=== PATIENT | female | born 1960 | race Caucasian/White ===

== ENCOUNTER → 2017-04-10 | Outpatient (CLI) | payer OTHER | LOC: FIMAGING 15:02 | PROVIDERS: ATTEND Family Medicine | DX: Z12.31 Encounter for screening mammogram for malignant neoplasm of breast (principal); Z80.3 Family history of malignant neoplasm of breast | CPT/HCPCS: G0202 ==

== ENCOUNTER → 2017-04-25 | Outpatient (CLI) | payer OTHER | LOC: FIMAGING 09:04 | PROVIDERS: ATTEND Family Medicine | CPT/HCPCS: G0206 ==

== ENCOUNTER → 2017-07-09 | Outpatient (CLI) | payer OTHER ==
[~2017-07-09] MED LIST: IOPAMIDOL (ISOVUE-300) 100 ML BTL ONE
== END ==
LOC: CIMAGING 08:15
PROVIDERS: ATTEND Family Medicine
DX: J98.4 Other disorders of lung (principal); K76.0 Fatty (change of) liver, not elsewhere classified; Z98.84 Bariatric surgery status; Z90.49 Acquired absence of other specified parts of digestive tract
CPT/HCPCS: 71260-PO; Q9967

== ENCOUNTER 2017-07-24 13:51 | Inpatient (IN) | payer OTHER ==
[2017-07-24] MEDS ORDERED: PROMETHAZINE HCL 25 MG/ML INJ IVP ONE (14:11)
[2017-07-24] MEDS ORDERED: HYDROmorphONE/DILAUDID 1 MG/ML INJ IVP ONE (14:11)
[2017-07-24] MEDS ORDERED: NS 1,000 ML IV ONE (14:11)
--- NOTE | 2017-07-24 14:16 | EDPHY ---
H & P Stated Complaint: R FLANK PAIN Time Seen by Provider: 07/24/17 14:05 HPI/ROS: CHIEF COMPLAINT: Right flank pain radiating to her right HISTORY OF PRESENT ILLNESS: The patient is a 56-year-old female who comes to the emergency department complaining of right flank pain that is radiating to her groin it has been present for 3 days. She has also developed a low-grade fever of 100 degrees in the last 24 hours. Mild dysuria. Vomiting. She denies any chest pain or shortness of breath. She denies risk of . No vaginal bleeding or discharge. No diarrhea. REVIEW OF SYSTEMS: Constitutional: See HPI EENTM: denies: blurred vision, double vision, nose congestion Respiratory: denies: cough, shortness of breath Cardiac: denies: chest pain, irregular heart rate, lightheadedness, palpitations Gastrointestinal/Abdominal: See HPI Genitourinary: denies: dysuria, frequency, hematuria, pain Musculoskeletal: denies: joint pain, muscle pain Skin: denies: lesions, rash, jaundice, bruising Neurological: denies: headache, numbness, paresthesia, tingling, dizziness, weakness Hematologic/Lymphatic: denies: blood clots, easy bleeding, easy bruising Immunologic/allergic: denies: HIV/AIDS, transplant EXAM: GENERAL: Well-appearing, well-nourished and in no acute distress. HEAD: Atraumatic, normocephalic. EYES: Pupils equal round and reactive to light, extraocular movements intact, sclera anicteric, conjunctiva are normal. ENT: TMs normal, nares patent, oropharynx clear without exudates. Moist mucous membranes. NECK: Normal range of motion, supple without lymphadenopathy or JVD. LUNGS: Breath sounds clear to auscultation bilaterally and equal. No wheezes rales or rhonchi. HEART: Regular rate and rhythm without murmurs, rubs or gallops. ABDOMEN: Soft, nontender, normoactive bowel sounds. No guarding, no rebound. No masses appreciated. BACK: Positive CVA tenderness, no spinal tenderness, step-offs or deformities EXTREMITIES: Normal range of motion, no pitting or edema. No clubbing or cyanosis. NEUROLOGICAL: Cranial nerves II through XII grossly intact. Normal speech, normal gait. 5/5 strength, normal movement in all extremities, normal sensation PSYCH: Normal mood, normal affect. SKIN: Warm, dry, normal turgor, no visible rashes or lesions. Source: Patient Exam Limitations: No limitations - Personal History Current Tetanus Diphtheria and Acellular Pertussis (TDAP): Yes Tetanus Vaccine Date: within last 10 years. 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.RA, kidney stones,reflux, neck surgery, vocal cord surgery - Family History Significant Family History: No pertinent family hx - Social History Smoking Status: Current every day smoker Alcohol Use: Sober Drug Use: None Constitutional: Initial Vital Signs Temperature (C) 36.9 C 07/24/17 14:02 Heart Rate 83 07/24/17 14:02 Respiratory Rate 16 07/24/17 14:02 Blood Pressure 151/76 H 07/24/17 14:02 O2 Sat (%) 92 07/24/17 14:02 O2 Delivery Mode Room Air O2 (L/minute) 2 Allergies/Adverse Reactions: Penicillins Allergy (Severe, Verified 10/25/14 16:56) Swelling/neck,face,throat Home Medications: Medication Instructions Recorded Gabapentin [Neurontin 300 MG (*)] 300 mg PO HS 10/25/14 Pravastatin Sodium [Pravachol] 40 mg PO HS 10/25/14 Alendronate Sodium [Fosamax 70 MG 70 mg PO DONOVAN@0700 07/24/17 (*)] Fluocinonide 0.05% [Lidex 0.05% 1 ian TP DAILY 07/24/17 Cream] Humira 40 mg INJ Q14D 07/24/17 Omeprazole 40 mg PO DAILY06 07/24/17 Pramipexole Di-HCl [Pramipexole 0.75 mg PO HS 07/24/17 Dihydrochloride] Pravastatin Sodium [Pravachol] 40 mg PO HS 07/24/17 Propranolol HCl [Inderal Xl] 80 mg PO DAILY 07/24/17 Sulfamethox/Tmp 800/160 mg 1 tab PO BID 07/24/17 [Bactrim Ds] Medical Decision Making - Diagnostics Imaging Results: Imaging Impressions Abdomen/Pelvis CT 07/24/17 14:42 Impression: Obstructing right ureteral pelvic stone still several centimeters from the bladder. Results called and discussed with JENIFFER SANCHEZ, at 07/24/2017 15:17. General information for patients regarding this examination can be found at [email or web address]. If you have questions or comments about this report, please contact me at (hospital) or [phone] (cell). Imaging: Discussed imaging studies w/ instrument setter Radiologist ED Course/Re-evaluation: Patient's LFTs are elevated. They were as well in 2014. At that time she was admitted with sepsis. It was thought to be possibly due to her statins which were held. According to the medical record she also has a history of lupus and Sjogren syndrome as well as SVT status post ablation, hysterectomy and C- section as well as cervical spine surgery and frequent UTIs. 3:20 p.m. we discussed the CT and lab results. The patient has a kidney stone complicated by likely pyelonephritis. We have initiated lab work for sepsis protocol. I have ordered Rocephin. Have paged the hospitalist service and the urologist. Her vital signs remained stable. 3:40 p.m. I discussed the case with Dr. Segura who will admit to medical service. 4:30 p.m. discussed the case with Dr. Krystian Carlton who requested the patient be made NPO. Differential Diagnosis: Partial list of the Differential diagnosis considered include but were not limited to; kidney stone, urinary tract infection, and although unlikely based on the history and physical exam, I also considered radiculopathy, pneumonia. Critical Care Time: Critical care time spent by , Dr. Sanchez exclusive with this patient was 35 minutes, exclusive of the PA time exclusive of procedures. The organ system that was at risk was genitourinary and I gave IV fluids, antibiotics, consultation and admission to prevent worsening of the patient's condition - Data Points Laboratory Results: Laboratory Results 07/24/17 13:55 07/24/17 13:55 07/24/17 07/24/17 07/24/17 15:33 13:55 13:55 WBC RBC Hgb Hct MCV MCH MCHC RDW Plt Count MPV Neut % (Auto) Lymph % (Auto) [place] % (Auto) Eos % (Auto) Baso % (Auto) Nucleat RBC Rel Count Absolute Neuts (auto) Absolute Lymphs (auto) Absolute Monos (auto) Absolute Eos (auto) Absolute Basos (auto) Absolute Nucleated RBC Immature Gran % Immature Gran # VBG Lactic Acid 0.7 mmol/L mmol/L (0.7-2.1) Sodium 141 mEq/L mEq/L (134-144) Potassium 3.1 mEq/L L mEq/L (3.5-5.2) Chloride 99 mEq/L mEq/L (97-110) Carbon Dioxide 23 mEq/l mEq/l (22-31) Anion Gap 19 mEq/L H mEq/L (8-16) BUN 17 mg/dL mg/dL (7-23) Creatinine 1.0 mg/dL mg/dL (0.6-1.0) Estimated GFR 58 Glucose 117 mg/dL H mg/dL (70-100) Calcium 10.2 mg/dL mg/dL (8.5-10.4) Total Bilirubin 1.4 mg/dL mg/dL (0.1-1.4) Conjugated Bilirubin 0.3 mg/dL mg/dL (0.0-0.5) Unconjugated Bilirubin 1.1 mg/dL mg/dL (0.0-1.1) AST 218 IU/L H IU/L (14-46) ALT 226 IU/L H IU/L (9-52) Alkaline Phosphatase 178 IU/L H IU/L (38-126) Total Protein 8.1 g/dL g/dL (6.3-8.2) Albumin 4.9 g/dL g/dL (3.5-5.0) Lipase 93 IU/L IU/L (23-300) Beta HCG, Qual NEGATIVE Urine Color Urine Appearance Urine pH Ur Specific [place] Urine Protein Urine Ketones Urine Blood Urine Nitrate Urine Bilirubin Urine Urobilinogen Ur Leukocyte Esterase Urine RBC Urine WBC Ur Epithelial Cells Urine Bacteria Urine Mucus Urine Glucose 07/24/17 07/24/17 13:55 13:52 WBC 17.04 10^3/uL H 10^3/uL (3.80-9.50) RBC 5.17 10^6/uL 10^6/uL (4.18-5.33) Hgb 16.2 g/dL g/dL (12.6-16.3) Hct 45.2 % % (38.0-47.0) MCV 87.4 fL fL (81.5-99.8) MCH 31.3 pg pg (27.9-34.1) MCHC 35.8 g/dL g/dL (32.4-36.7) RDW 13.0 % % (11.5-15.2) Plt Count 369 10^3/uL 10^3/uL (150-400) MPV 9.3 fL fL (8.7-11.7) Neut % (Auto) 75.5 % H % (39.3-74.2) Lymph % (Auto) 15.2 % % (15.0-45.0) [place] % (Auto) 8.3 % % (4.5-13.0) Eos % (Auto) 0.1 % L % (0.6-7.6) Baso % (Auto) 0.4 % % (0.3-1.7) Nucleat RBC Rel Count 0.0 % % (0.0-0.2) Absolute Neuts (auto) 12.87 10^3/uL H 10^3/uL (1.70-6.50) Absolute Lymphs (auto) 2.59 10^3/uL 10^3/uL (1.00-3.00) Absolute Monos (auto) 1.42 10^3/uL H 10^3/uL (0.30-0.80) Absolute Eos (auto) 0.02 10^3/uL L 10^3/uL (0.03-0.40) Absolute Basos (auto) 0.06 10^3/uL 10^3/uL (0.02-0.10) Absolute Nucleated RBC 0.00 10^3/uL 10^3/uL (0-0.01) Immature Gran % 0.5 % % (0.0-1.1) Immature Gran # 0.08 10^3/uL 10^3/uL (0.00-0.10) VBG Lactic Acid Sodium Potassium Chloride Carbon Dioxide Anion Gap BUN Creatinine Estimated GFR Glucose Calcium Total Bilirubin Conjugated Bilirubin Unconjugated Bilirubin AST ALT Alkaline Phosphatase Total Protein Albumin Lipase Beta HCG, Qual Urine Color ANKIT Urine Appearance HAZY Urine pH 5.0 (5.0-7.5) Ur Specific [place] 1.027 (1.002-1.030) Urine Protein 2+ H (NEGATIVE) Urine Ketones 1+ H (NEGATIVE) Urine Blood 2+ H (NEGATIVE) Urine Nitrate POSITIVE H (NEGATIVE) Urine Bilirubin NEGATIVE (NEGATIVE) Urine Urobilinogen 2.0 EU H EU (0.2-1.0) Ur Leukocyte Esterase TRACE H (NEGATIVE) Urine RBC 50-182 /hpf H /hpf (0-3) Urine WBC 25-50 /hpf H /hpf (0-3) Ur Epithelial Cells 1+ /lpf /lpf (NONE-1+) Urine Bacteria TRACE /hpf H /hpf (NONE SEEN) Urine Mucus TRACE /lpf /lpf (NONE-1+) Urine Glucose NEGATIVE (NEGATIVE) Medications Given: Hydromorphone HCl (Dilaudid) 0.2 - 1 mg IVP Q2 PRN PRN Reason: Pain, Severe Unable to Take PO Stop: 08/03/17 15:40 Last Admin: 07/24/17 17:07 Dose: 1 mg Sodium Chloride (Ns) 1,000 mls @ 150 mls/hr IV CONT SHUBHAM Stop: 01/20/18 15:44 Last Admin: 07/24/17 17:08 Dose: 1,000 mls Ondansetron HCl (Zofran) 4 mg IVP Q4HRS PRN PRN Reason: Nausea/Vomiting, Can't Take PO Stop: 01/20/18 15:40 Last Admin: 07/24/17 17:07 Dose: 4 mg Discontinued Medications Hydromorphone HCl (Dilaudid) 1 mg IVP EDNOW ONE Stop: 07/24/17 14:12 Last Admin: 07/24/17 14:19 Dose: 1 mg Sodium Chloride (Ns) 1,000 mls @ 0 mls/hr IV EDNOW ONE; Wide Open PRN Reason: Protocol Stop: 07/24/17 14:12 Last Admin: 07/24/17 14:19 Dose: 1,000 mls Ceftriaxone Sodium/Dextrose (Rocephin 1 Gm (Premix)) 50 mls @ 100 mls/hr IV EDNOW ONE PRN Reason: Protocol Stop: 07/24/17 15:28 Last Admin: 07/24/17 15:20 Dose: 50 mls Sodium Chloride (Ns) 2,000 mls @ 4,000 mls/hr 30 ml/kg infuse over 30 min ( 2000 ml) IV EDNOW ONE PRN Reason: Protocol Stop: 07/24/17 15:50 Last Admin: 07/24/17 15:31 Dose: 2,000 mls Ketorolac Tromethamine (Toradol) 15 mg IVP EDNOW ONE Stop: 07/24/17 15:25 Last Admin: 07/24/17 15:30 Dose: 15 mg Promethazine HCl (Phenergan) 12.5 mg IVP EDNOW ONE Stop: 07/24/17 14:12 Last Admin: 07/24/17 14:18 Dose: 12.5 mg Departure - Departure Disposition: [facility] Acute Clinical Impression: Kidney stone on right side, Pyelonephritis Sepsis Qualifiers: Sepsis type: sepsis due to unspecified organism Qualified Code(s): A41.9 - Sepsis, unspecified organism Condition: Critical
[2017-07-24 14:18] LABS: COLOR AMBER; LEUKOCYTE ESTERASE,URINE TRACE (NEGATIVE); NITRITE,URINE POSITIVE (NEGATIVE)
[2017-07-24 14:18] LABS: % IMMATURE GRANULYOCYTES 0.5 % (0.0-1.1); ABSOLUTE IMMATURE GRANULOCYTES 0.08 10^3/uL (0.00-0.10); ADD DIFF? NO; ADD MORPH? NO; ADD SCAN? NO; ATYPICAL LYMPHOCYTE FLAG 0 (0-99); FRAGMENT RBC FLAG 0 (0-99); HEMATOCRIT 45.2 % (38.0-47.0); HEMOGLOBIN 16.2 g/dL (12.6-16.3); LEFT SHIFT FLG 0 (0-99); LIPEMIA HEMOLYSIS FLAG 90 (0-99); MEAN CELL HEMOGLOBIN 31.3 pg (27.9-34.1); MEAN CELL HEMOGLOBIN CONCENTR. 35.8 g/dL (32.4-36.7); MEAN CELL VOLUME 87.4 fL (81.5-99.8); MEAN PLATELET VOLUME 9.3 fL (8.7-11.7); PLATELET CLUMPS FLAG 0 (0-99); PLATELET COUNT 369 10^3/uL (150-400); RED BLOOD CELL COUNT 5.17 10^6/uL (4.18-5.33)
[2017-07-24 14:19] LABS: BACTERIA TRACE /hpf (NONE SEEN); MUCUS TRACE /lpf (NONE-1+); RBC,URINE 50-182 /hpf (0-3); WBC,URINE 25-50 /hpf (0-3)
[2017-07-24 14:24] LABS: ALANINE AMINOTRANSFERASE 226 IU/L (9-52); ALBUMIN 4.9 g/dL (3.5-5.0); ALKALINE PHOSPHATASE 178 IU/L (38-126); ANION GAP 19 mEq/L (8-16); ASPARTATE AMINOTRANSFERASE 218 IU/L (14-46); BILIRUBIN,TOTAL 1.4 mg/dL (0.1-1.4); BILIRUBIN-CONJUGATED 0.3 mg/dL (0.0-0.5); BILIRUBIN-UNCONJUGATED 1.1 mg/dL (0.0-1.1); CALCIUM 10.2 mg/dL (8.5-10.4); CARBON DIOXIDE 23 mEq/l (22-31); CHLORIDE 99 mEq/L (97-110); GLOMERULAR FILTRATION RATE 58; GLUCOSE 117 mg/dL (70-100); POTASSIUM 3.1 mEq/L (3.5-5.2); SODIUM 141 mEq/L (134-144); TOTAL PROTEIN 8.1 g/dL (6.3-8.2)
[2017-07-24] MEDS ORDERED: NS 2,000 ML IV ONE (15:21)
[2017-07-24] MEDS ORDERED: KETOROLAC 30 MG/1 ML SDV IVP ONE (15:24)
[2017-07-24] MEDS ORDERED: PROMETHAZINE HCL 25 MG TAB PO PRN (15:41)
[2017-07-24] MEDS ORDERED: ACETAMINOPHEN 325 MG TAB PO PRN (15:41)
[2017-07-24] MEDS ORDERED: ONDANSETRON DISINTEGRATING 4 MG TAB PO PRN (15:41)
[2017-07-24] MEDS ORDERED: HYDROmorphONE/DILAUDID 2 MG TAB PO PRN (15:41)
[2017-07-24] MEDS: HYDROmorphONE/DILAUDID 1 MG/ML INJ IVP PRN ×2 (17:07→20:46)
[2017-07-24] MEDS: ONDANSETRON 4 MG/2 ML VIAL IVP PRN (17:07)
[2017-07-24] MEDS: NS 1,000 ML IV SCH (17:08)
--- NOTE | 2017-07-24 17:46 | PDGENHP ---
History and Physical - Chief Complaint Acute flank pain - History of Present Illness Primary care provider: Dr. Morris Primary forensic specialist: Dr. Wilson Primary electrostatic powder coating technician: At [facility] in [place] HPI: 56-year-old female presents with acute pain characterized as sharp and severe located in her right flank, radiating into her right groin, with associated hematuria nausea and vomiting. Onset of symptoms was 3 days prior and duration has been constant thereafter. The symptoms began with visible hematuria and the pain symptoms quickly evolved. On the day of presentation, she has noted subjective fever with a temperature of 100 degrees F. she reports that her symptoms are similar in character to previous episodes of kidney stones , and she attempted to manage the symptoms with oral Polv[place]era. She reports that this medication did not alleviate the symptoms, and she may vomited up. She reports that the pain medication received in the emergency department does seem to somewhat alleviate the symptoms. She has otherwise been attempting to eat and drink regularly, but notes poor oral intake of solids over the past several days, secondary to the nausea and vomiting. History Information - Allergies/Home Medication List Allergies/Adverse Reactions: Penicillins Allergy (Severe, Verified 10/25/14 16:56) Swelling/neck,face,throat Home Medications: Gabapentin [Neurontin 300 MG (*)] 300 mg PO HS 10/25/14 [Last Taken 07/21/17] Pravastatin Sodium [Pravachol] 40 mg PO HS 10/25/14 [Last Taken 07/21/17] Alendronate Sodium [Fosamax 70 MG (*)] 70 mg PO DONOVAN@0700 07/24/17 [Last Taken ] Fluocinonide 0.05% [Lidex 0.05% Cream] 1 ian TP DAILY 07/24/17 [Last Taken 07/24] Humira 40 mg INJ Q14D 07/24/17 [Last Taken 07/12/17] Omeprazole 40 mg PO DAILY06 07/24/17 [Last Taken 07/21/17] Pramipexole Di-HCl [Pramipexole Dihydrochloride] 0.75 mg PO HS 07/24/17 [Last Taken 07/21/17] Pravastatin Sodium [Pravachol] 40 mg PO HS 07/24/17 [Last Taken 07/21/17] Propranolol HCl [Inderal Xl] 80 mg PO DAILY 07/24/17 [Last Taken 07/21/17] Sulfamethox/Tmp 800/160 mg [Bactrim Ds] 1 tab PO BID 07/24/17 [Last Taken ] I have personally reviewed and updated: family history, medical history, social history, surgical history - Past Medical History Additional medical history: Nephrolithiasis. Lupus with hand joint involvement. Prior E coli urinary tract infections. Sjogren's syndrome. Essential tremor. Several months of pulmonary symptoms with outpatient workup including chest x-ray, chest CT, pursuing high-resolution chest CT in the short term at [facility]. SVT ablation - Surgical History Additional surgical history: Cholecystectomy. Hysterectomy. . C6-C7 surgery - Family History Additional family history: No family history of lupus, no kidney stones, no end- stage renal disease - Social History Smoking Status: Current every day smoker Alcohol Use: Sober Drug Use: None Additional social history: Independent in her ADLs Review of Systems Review of Systems: ROS: 10pt was reviewed & negative except for what was stated in HPI & below Gastrointestinal: Reports: vomitting, abdominal pain, nausea Genitourinary: Reports: hematuria Physical Exam Physical Exam: Temp Pulse Resp BP Pulse Ox 36.8 C 72 18 141/79 H 94 07/24/17 16:40 07/24/17 16:40 07/24/17 16:40 07/24/17 16:40 07/24/17 16:40 Constitutional: appears nourished, uncomfortable, No no apparent distress ( Moderate), No not in pain (Moderate) Eyes: PERRL, anicteric sclera, EOMI Ears, Nose, Mouth, Throat: moist mucous membranes, hearing normal, ears appear normal, no oral mucosal ulcers Cardiovascular: regular rate and rhythym, no murmur, rub, or gallop, No edema Respiratory: reduced air movement (On inspiration and expiration bilaterally), No expiratory wheeze, No inspiratory crackles, No bronchial breath sounds, No respiratory distress Gastrointestinal: tenderness (Right upper quadrant, right lower quadrant, right flank), guarding (Voluntary), No normoactive bowel sounds (Hypoactive bowel sounds), No distension Skin: other (Many tattoos, no erythema or vesicles over the right flank) Neurologic: AAOx3, No weakness, No facial droop Psychiatric: not encephalopathic, thought process linear, anxious, No agitated Lab Data & Imaging Review 07/24/17 13:55 07/24/17 13:55 WBC 17.04 10^3/uL (3.80-9.50) H 07/24/17 13:55 RBC 5.17 10^6/uL (4.18-5.33) 07/24/17 13:55 Hgb 16.2 g/dL (12.6-16.3) 07/24/17 13:55 Hct 45.2 % (38.0-47.0) 07/24/17 13:55 MCV 87.4 fL (81.5-99.8) 07/24/17 13:55 MCH 31.3 pg (27.9-34.1) 07/24/17 13:55 MCHC 35.8 g/dL (32.4-36.7) 07/24/17 13:55 RDW 13.0 % (11.5-15.2) 07/24/17 13:55 Plt Count 369 10^3/uL (150-400) 07/24/17 13:55 MPV 9.3 fL (8.7-11.7) 07/24/17 13:55 Neut % (Auto) 75.5 % (39.3-74.2) H 07/24/17 13:55 Lymph % (Auto) 15.2 % (15.0-45.0) 07/24/17 13:55 [place] % (Auto) 8.3 % (4.5-13.0) 07/24/17 13:55 Eos % (Auto) 0.1 % (0.6-7.6) L 07/24/17 13:55 Baso % (Auto) 0.4 % (0.3-1.7) 07/24/17 13:55 Nucleat RBC Rel Count 0.0 % (0.0-0.2) 07/24/17 13:55 Absolute Neuts (auto) 12.87 10^3/uL (1.70-6.50) H 07/24/17 13:55 Absolute Lymphs (auto) 2.59 10^3/uL (1.00-3.00) 07/24/17 13:55 Absolute Monos (auto) 1.42 10^3/uL (0.30-0.80) H 07/24/17 13:55 Absolute Eos (auto) 0.02 10^3/uL (0.03-0.40) L 07/24/17 13:55 Absolute Basos (auto) 0.06 10^3/uL (0.02-0.10) 07/24/17 13:55 Absolute Nucleated RBC 0.00 10^3/uL (0-0.01) 07/24/17 13:55 Immature Gran % 0.5 % (0.0-1.1) 07/24/17 13:55 Immature Gran # 0.08 10^3/uL (0.00-0.10) 07/24/17 13:55 VBG Lactic Acid 0.7 mmol/L (0.7-2.1) 07/24/17 15:33 Sodium 141 mEq/L (134-144) 07/24/17 13:55 Potassium 3.1 mEq/L (3.5-5.2) L 07/24/17 13:55 Chloride 99 mEq/L (97-110) 07/24/17 13:55 Carbon Dioxide 23 mEq/l (22-31) 07/24/17 13:55 Anion Gap 19 mEq/L (8-16) H 07/24/17 13:55 BUN 17 mg/dL (7-23) 07/24/17 13:55 Creatinine 1.0 mg/dL (0.6-1.0) 07/24/17 13:55 Estimated GFR 58 07/24/17 13:55 Glucose 117 mg/dL (70-100) H 07/24/17 13:55 Calcium 10.2 mg/dL (8.5-10.4) 07/24/17 13:55 Total Bilirubin 1.4 mg/dL (0.1-1.4) 07/24/17 13:55 Conjugated Bilirubin 0.3 mg/dL (0.0-0.5) 07/24/17 13:55 Unconjugated Bilirubin 1.1 mg/dL (0.0-1.1) 07/24/17 13:55 AST 218 IU/L (14-46) H 07/24/17 13:55 ALT 226 IU/L (9-52) H 07/24/17 13:55 Alkaline Phosphatase 178 IU/L (38-126) H 07/24/17 13:55 Total Protein 8.1 g/dL (6.3-8.2) 07/24/17 13:55 Albumin 4.9 g/dL (3.5-5.0) 07/24/17 13:55 Lipase 93 IU/L (23-300) 07/24/17 13:55 Beta HCG, Qual NEGATIVE 07/24/17 13:55 Urine Color ANKIT 07/24/17 13:52 Urine Appearance HAZY 07/24/17 13:52 Urine pH 5.0 (5.0-7.5) 07/24/17 13:52 Ur Specific [place] 1.027 (1.002-1.030) 07/24/17 13:52 Urine Protein 2+ (NEGATIVE) H 07/24/17 13:52 Urine Ketones 1+ (NEGATIVE) H 07/24/17 13:52 Urine Blood 2+ (NEGATIVE) H 07/24/17 13:52 Urine Nitrate POSITIVE (NEGATIVE) H 07/24/17 13:52 Urine Bilirubin NEGATIVE (NEGATIVE) 07/24/17 13:52 Urine Urobilinogen 2.0 EU (0.2-1.0) H 07/24/17 13:52 Ur Leukocyte Esterase TRACE (NEGATIVE) H 07/24/17 13:52 Urine RBC 50-182 /hpf (0-3) H 07/24/17 13:52 Urine WBC 25-50 /hpf (0-3) H 07/24/17 13:52 Ur Epithelial Cells 1+ /lpf (NONE-1+) 07/24/17 13:52 Urine Bacteria TRACE /hpf (NONE SEEN) H 07/24/17 13:52 Urine Mucus TRACE /lpf (NONE-1+) 07/24/17 13:52 Urine Glucose NEGATIVE (NEGATIVE) 07/24/17 13:52 Visualized and Interpreted imaging results: Yes Interpretation: Abdominal CT demonstrating right ureter obstructing stone 5 mm in diameter with resultant right-sided hydronephrosis, small residual right- sided stone in the renal pelvis, moderate size left stone in the left renal pelvis Assessment & Plan Assessment: 56-year-old female presenting with acute obstructive uropathy Plan: 1. Obstructive uropathy. Evidenced by hydronephrosis, obstructing stone, most likely requiring surgical intervention -discussed with Dr. Eb Sanchez in the emergency department, he has reported to me that he has consulted with Urology to request potential stone removal in a.m. -make NPO after midnight -provide high rate IV fluids, IV and oral pain control, supportive antiemetics -continue monitor renal function 2. Nephrolithiasis. Acute on chronic, new problem this provider, further workup indicated. Patient is unclear as to what kind of stone she has had in the past -will strain the urine, send the stone for composition analysis -patient appears to have sizable stone on the left, it is at risk for future ureteral obstruction, recommend that she discuss possible ESWL with Urology 3. Hydronephrosis. Moderate to severe on the right side, present on CT, monitor creatinine level and urine output 4. Transaminitis. Acute, reviewed outside records including 07/09/2017 CT demonstrating steatosis, reviewed outside liver panel from 06/02/2017 which was normal, unclear whether her liver enzymes are elevated acutely in the setting of severe illness or whether steatosis is evolving -continue to monitor -recommend repeating as an outpatient with PCP -hold on biliary evaluation as the most likely cause of her pain is her obstructing right kidney stone 5. Pulmonary ground-glass opacities. Present on recent chest imaging, patient may have underlying diagnosis of interstitial lung disease, she is currently being evaluated by an outpatient electrostatic powder coating technician who is getting high-resolution chest CT, does not appear to have any acute exacerbation 6. Tobacco use disorder. Nicotine replacement therapy 7. Chronic immunosuppression. Secondary to medication for lupus and Sjogren syndrome, continue home medications 8. Possible urinary tract infection. Evidenced by white blood cell count 29780 , urinalysis positive for nitrite, white blood cells, leukocyte Estrace, potentially caused by kidney stone -reviewed prior micro, patient has history of pansensitive E coli -he has tolerated the IV ceftriaxone without any allergic reaction, continue Diet. Regular, NPO after midnight Prophylaxis. Low risk, SCDs Code. Full Disposition. Anticipated discharge is 07/25/2017, pending stabilization of condition outlined above.
[2017-07-24] MEDS: GABAPENTIN 300 MG CAP PO SCH (20:45)
[2017-07-24] MEDS: NICOTINE POLACRILEX 2 MG GUM B PRN (20:45)
[2017-07-24] MEDS: TAMSULOSIN HCL 0.4 MG CAP PO SCH (20:46)
[2017-07-24] MEDS ORDERED: PRAMIPEXOLE DI HCL 0.75 MG PO SCH (21:00)
[2017-07-24] MEDS: TEMAZEPAM 15 MG CAP PO PRN (21:48)
[2017-07-25] MEDS: NS 1,000 ML IV SCH ×2 (00:50→07:25)
[2017-07-25] MEDS: PROMETHAZINE HCL 25 MG/ML INJ IVP PRN ×2 (01:07→19:50)
[2017-07-25] MEDS: HYDROmorphONE/DILAUDID 1 MG/ML INJ IVP PRN ×5 (01:08→19:51)
[2017-07-25] MEDS: ONDANSETRON 4 MG/2 ML VIAL IVP PRN ×2 (04:01→12:23)
[2017-07-25 05:34] LABS: % IMMATURE GRANULYOCYTES 0.3 % (0.0-1.1); ABSOLUTE IMMATURE GRANULOCYTES 0.02 10^3/uL (0.00-0.10); ADD DIFF? NO; ADD MORPH? NO; ADD SCAN? NO; ATYPICAL LYMPHOCYTE FLAG 0 (0-99); FRAGMENT RBC FLAG 0 (0-99); HEMATOCRIT 33.5 % (38.0-47.0); HEMOGLOBIN 11.3 g/dL (12.6-16.3); LEFT SHIFT FLG 0 (0-99); LIPEMIA HEMOLYSIS FLAG 80 (0-99); MEAN CELL HEMOGLOBIN 30.5 pg (27.9-34.1); MEAN CELL HEMOGLOBIN CONCENTR. 33.7 g/dL (32.4-36.7); MEAN CELL VOLUME 90.5 fL (81.5-99.8); MEAN PLATELET VOLUME 9.4 fL (8.7-11.7); PLATELET CLUMPS FLAG 0 (0-99); PLATELET COUNT 225 10^3/uL (150-400)
[2017-07-25 05:51] LABS: POTASSIUM 2.9 mEq/L (3.5-5.2)
[2017-07-25 05:52] LABS: ALANINE AMINOTRANSFERASE 300 IU/L (9-52); ALBUMIN 2.8 g/dL (3.5-5.0); ALKALINE PHOSPHATASE 121 IU/L (38-126); ANION GAP 7 mEq/L (8-16); ASPARTATE AMINOTRANSFERASE 301 IU/L (14-46); BILIRUBIN,TOTAL 1.2 mg/dL (0.1-1.4); CALCIUM 7.9 mg/dL (8.5-10.4); CARBON DIOXIDE 23 mEq/l (22-31); CHLORIDE 111 mEq/L (97-110); CREATININE 0.7 mg/dL (0.6-1.0); GLOMERULAR FILTRATION RATE > 60; GLUCOSE 87 mg/dL (70-100); MAGNESIUM 1.9 mg/dL (1.6-2.3); SODIUM 141 mEq/L (134-144); TOTAL PROTEIN 4.9 g/dL (6.3-8.2)
[2017-07-25] MEDS ORDERED: NON-FORMULARY NEW DRUG (Omeprazole [Omeprazole] 40 MG) PO SCH (06:00)
[2017-07-25] MEDS ORDERED: IOPAMIDOL (ISOVUE-M 300) 15 ML VIAL ONE (07:09)
[2017-07-25] MEDS ORDERED: LIDOCAINE 2% JELLY 20 ML (UROJECT) ONE (07:09)
[2017-07-25] MEDS ORDERED: POTASSIUM CL 20 MEQ TAB PO ONE (07:30)
[2017-07-25] MEDS ORDERED: PROTOCOL MAGNESIUM 1 DOSE IV PRN (08:42)
[2017-07-25] MEDS ORDERED: PROTOCOL POTASSIUM 1 DOSE MISC PRN (08:42)
[2017-07-25] MEDS ORDERED: LR 1,000 ML IV ONE (08:45)
[2017-07-25] MEDS ORDERED: NON-FORMULARY NEW DRUG (Propranolol Hcl [Inderal Xl] 80 MG) PO SCH (09:00)
[2017-07-25] MEDS ORDERED: MIDAZOLAM 2 MG/2 ML VIAL ONE (09:23)
[2017-07-25] MEDS ORDERED: fentaNYL 100 MCG/2 ML INJ ONE (09:23)
[2017-07-25] MEDS ORDERED: PROPOFOL/EMULSION 500 MG/50 ML BOTTLE IV ONE (09:24)
[2017-07-25] MEDS ORDERED: PROPOFOL 200 MG/20 ML VIAL ONE (09:27)
[2017-07-25] MEDS ORDERED: LIDOCAINE 2% 5 ML SDV ONE (09:35)
[2017-07-25] MEDS ORDERED: ONDANSETRON 4 MG/2 ML VIAL ONE (09:35)
[2017-07-25] MEDS ORDERED: NALOXONE HCL 0.4 MG/ML INJ IVP PRN (10:03)
[2017-07-25] MEDS ORDERED: DEXAMETHASONE 4 MG/ML VIAL IVP PRN (10:03)
[2017-07-25] MEDS ORDERED: fentaNYL 100 MCG/2 ML INJ IVP PRN (10:03)
[2017-07-25] MEDS ORDERED: LR 500 ML IV PRN (10:03)
[2017-07-25] MEDS ORDERED: ALBUTEROL 3 ML DEYVIAL IH PRN (10:03)
--- NOTE | 2017-07-25 10:03 | POSTANESTH ---
Post Anesthetic Evaluation Cardiovascular Status: Normal, Stable Respiratory Status: Normal, Stable Level of Consciousness/Mental Status: Can Participate in Eval Pain Control: Adequate, Prn Tx Ordered Nausea/Vomiting Control: Adequate, Prn Tx Ordered Complications Possibly Related to Anesthesia: None Noted
--- NOTE | 2017-07-25 10:03 | PDANEPAE ---
ANE Past Medical History - Cardiovascular History Hx Arrhythmias: Yes - Pulmonary History Hx COPD: Yes Hx Recent Upper Respiratory Infection: Yes Hx Oxygen in Use at Home: No Hx Sleep Apnea: No Sleep Apnea Screening Result - Last Documented: Positive Pulmonary History Comment: smoker - Endocrine History Hx Diabetes: No - Liver History Hx Hepatic Disorders: Yes - Other Health History Other Health History: lupus, sjogren - Chronic Pain History Chronic Pain: Yes ANE Review of Systems Review of Systems: ANE Patient History - Allergies Allergies/Adverse Reactions: Penicillins Allergy (Severe, Verified 10/25/14 16:56) Swelling/neck,face,throat - Home Medications Home Medications: Gabapentin [Neurontin 300 MG (*)] 300 mg PO HS 10/25/14 [Last Taken 07/21/17] Pravastatin Sodium [Pravachol] 40 mg PO HS 10/25/14 [Last Taken 07/21/17] Alendronate Sodium [Fosamax 70 MG (*)] 70 mg PO DONOVAN@0700 07/24/17 [Last Taken ] Fluocinonide 0.05% [Lidex 0.05% Cream] 1 ian TP DAILY 07/24/17 [Last Taken 07/24] Humira 40 mg INJ Q14D 07/24/17 [Last Taken 07/12/17] Omeprazole 40 mg PO DAILY06 07/24/17 [Last Taken 07/21/17] Pramipexole Di-HCl [Pramipexole Dihydrochloride] 0.75 mg PO HS 07/24/17 [Last Taken 07/21/17] Pravastatin Sodium [Pravachol] 40 mg PO HS 07/24/17 [Last Taken 07/21/17] Propranolol HCl [Inderal Xl] 80 mg PO DAILY 07/24/17 [Last Taken 07/21/17] Sulfamethox/Tmp 800/160 mg [Bactrim Ds] 1 tab PO BID 07/24/17 [Last Taken ] - NPO status NPO Since - Liquids (Date): 07/25/17 NPO Since - Liquids (Time): 00:00 NPO Since - Solids (Date): 07/23/17 NPO Since - Solids (Time): 09:00 - Smoking Hx Smoking Status: Current every day smoker - Alcohol Use Alcohol Use: Sober ANE Labs/Vital Signs - Labs Result Diagrams: 07/25/17 05:05 07/25/17 05:05 - Vital Signs Blood Pressure: 126/72 Heart Rate: 80 Respiratory Rate: 14 O2 Sat (%): 92 Height: 161.29 cm Weight: 65.4 kg ANE Physical Exam - Airway Neck exam: FROM Mallampati Score: Class 1 Mouth exam: normal dental/mouth exam - Pulmonary Pulmonary: no respiratory distress, no rales or rhonchi, reduced air movement - Cardiovascular Cardiovascular: regular rate and rhythym, no murmur, rub, or gallop - ASA Status ASA Status: IV ANE Anesthesia Plan Anesthesia Plan: general endotracheal anesthesia (concern about elevated liver enzymes, talked to surgeon about limiting the surgical/anesthesia exposure to minimum)
--- NOTE | 2017-07-25 10:28 | GCON ---
[f rep st] CONSULTATION DATE OF CONSULTATION: 07/25/2017 REASON FOR CONSULTATION: Right flank pain and urinary tract infection. HISTORY OF PRESENT ILLNESS: A 56-year-old lady with a 4-day history of right flank pain and malaise. Upon evaluation in the emergency department, she was found to have a 5 mL distal ureteral stone with hydronephrosis. Her home medications include alendronate, Humira, pravastatin, and Bactrim. She was having some chills and fevers. She was admitted for intervention. She states she had a stone approximately 15 years ago; no other urologic history or issues. Family, social and past medical history reviewed. PHYSICAL EXAMINATION: CONSTITUTIONAL: No apparent distress. She is currently on antibiotics. Her liver function tests have been rising. LUNGS: Clear. HEART: Regular. ABDOMEN: Soft. She has some right flank tenderness to palpation. No suprapubic tenderness. ASSESSMENT AND PLAN: Patient with obstructing distal 5 mm stone with evidence of urinary tract infection on urinalysis. Recommend right stent placement. We will deal with the stone intervention at a later date. We should sterile her urine first, and she needs to have evaluation and management of her rising liver function tests. Discussed with the patient the risks of anesthesia, especially with her rising liver tests, the risk of damage to local structures, and the inability to place a stent. She understands these risks and wishes to proceed. /[id number]/MODL MTDD
--- NOTE | 2017-07-25 10:38 | GOP ---
[f rep st] OPERATIVE REPORT DATE OF OPERATION: 07/25/2017 SURGEON: Albin Bhardwaj MD [employer] APPRAISER: None. ANESTHESIA: General. PREOPERATIVE DIAGNOSIS: Right 5 mm distal ureteral stone. POSTOPERATIVE DIAGNOSIS: Right 5 mm distal ureteral stone. PROCEDURE PERFORMED: Cystoscopy, right retrograde pyelogram, right stent placement, 24 cm 6-St Lucian double-J stent. FINDINGS: SPECIMENS: Right renal urine culture. COMPLICATIONS: None. ESTIMATED BLOOD LOSS: None. DESCRIPTION OF PROCEDURE: After informed consent was obtained, the patient was prepped and draped in the normal fashion. The patient was placed in the lithotomy position. A 22-St Lucian rigid cystoscope sheath was introduced. The bladder was inspected and was normal. The right orifice was intubated with a Glidewire. A gentle retrograde pyelogram was performed. She was noted to have moderate hydronephrosis with obstruction down to the distal ureter. I was able to navigate the wire past the stone up into the renal pelvis. I then put the 5- St Lucian open catheter over the wire. The right kidney urine culture was taken. I then placed a stent over the wire. The stent had a good curl within the renal pelvis and into the bladder under fluoroscopic and direct guidance. She tolerated the procedure very well. She was returned to the recovery room in excellent condition. She will follow up with me on an outpatient basis for management of her stent and her stone. /[id number]/MODL MTDD
[2017-07-25 10:44] LABS: ALANINE AMINOTRANSFERASE 267 IU/L (9-52); ALBUMIN 2.8 g/dL (3.5-5.0); ALKALINE PHOSPHATASE 121 IU/L (38-126); ANION GAP 7 mEq/L (8-16); ASPARTATE AMINOTRANSFERASE 185 IU/L (14-46); BILIRUBIN,TOTAL 0.8 mg/dL (0.1-1.4); CALCIUM 7.8 mg/dL (8.5-10.4); CARBON DIOXIDE 25 mEq/l (22-31); CHLORIDE 112 mEq/L (97-110); CREATININE 0.6 mg/dL (0.6-1.0); GLOMERULAR FILTRATION RATE > 60; GLUCOSE 87 mg/dL (70-100); POTASSIUM 3.2 mEq/L (3.5-5.2); SODIUM 144 mEq/L (134-144); TOTAL PROTEIN 5.1 g/dL (6.3-8.2)
[2017-07-25] MEDS: TAMSULOSIN HCL 0.4 MG CAP PO SCH (12:05)
[2017-07-25] MEDS: PANTOPRAZOLE SODIUM 40 MG TAB PO SCH (12:05)
[2017-07-25] MEDS: PROPRANOLOL SR 80 MG CAP PO SCH (12:05)
[2017-07-25] MEDS: NICOTINE 21 MG/24 HR PATCH TD SCH (12:06)
--- NOTE | 2017-07-25 12:12 | HOSPPROG ---
Hospitalist Progress Note Assessment/Plan: new pt encounter 56 YO Female admitted with right sided pyelonephritis and obstructive uropathy. She had ureterscopy with stent placement. She continues to have significant right flank pain. #Right sided pyelonephritis #Obstructive Uropathy, with hydronephrosis #Nephrolithiasis #transaminitis, unclear etiology, appears somewhat improving. No liver pain. Not on tylenol. -holding statin -Hep panel pending -Hx of steatosis #tobacco abuse disorder: NRT #Chronic immunosuppression Plan: -change to inpatient given significant symptoms and immunocompromised state -cont with Rocephin, await cultures -Cont IVF -Hold statin -recheck LFT's in a.m, await Hep panel, check INR -cont home meds SCD's Full Code Dispo: likely discharge tomorrow Subjective: still with right flank pain. +Nausea. No CP or SOB. Afebrile. Objective: Vital Signs Temp Pulse Resp BP Pulse Ox 36.8 C 71 18 143/73 H 93 07/25/17 11:18 07/25/17 12:05 07/25/17 11:18 07/25/17 12:05 07/25/17 11:18 Laboratory Results 07/25/17 05:05 07/25/17 10:00 07/24/17 07/25/17 07/26/17 05:59 05:59 05:59 Intake Total 4075 700 Output Total 1750 350 Balance 2325 350 - Physical Exam Constitutional: no apparent distress, appears nourished Eyes: PERRL, EOMI Ears, Nose, Mouth, Throat: moist mucous membranes, hearing normal Cardiovascular: regular rate and rhythym, No edema Respiratory: no respiratory distress, no rales or rhonchi, clear to auscultation Gastrointestinal: soft, non-tender abdomen, other (right cva tenderness) Skin: warm Neurologic: AAOx3 Psychiatric: interacting appropriately, not anxious, not encephalopathic, thought process linear ICD10 Worksheet Patient Problems: Problems Problem Status Onset Kidney stone on right side Acute Pyelonephritis Acute Sepsis Acute Cellulitis Acute
[2017-07-25] MEDS: NICOTINE POLACRILEX 2 MG GUM B PRN ×3 (12:22→17:25)
[2017-07-25] MEDS: PHENAZOPYRIDINE HCL 200 MG TAB PO SCH ×2 (12:22→20:09)
[2017-07-25] MEDS: FLUOCINONIDE 0.05% 15 GM CREAM TP SCH (13:10)
--- NOTE | 2017-07-25 13:43 | PDMN ---
Medical Necessity Medical necessity: Pt meets Inpt criteria per MD as of 07/25/17 and MCG M-300 Pyelonephritis (R-sided pyelonephritis, obstructive uropathy with hydronephrosis requiring stent placement, nephrolithiasis, transaminitis; hx chronic immunosuppresion per MD progress note).
--- NOTE | 2017-07-25 15:35 | ASMTCMCOM ---
CM Note CM Note Notes: Pt. is a 56-year-old woman admitted with obstructive uropathy due to a kidney stone. Hx. kidney stones, lupus, nephrolithiasis, Sjogren's syndrome, essential tremor, and smoking. No PT or OT ordered. Pt. currently on IV antibiotics. Likely independent at d/c. CM available should d/c POC change. Date Signed: 07/25/2017 03:34 PM Electronically Signed By:Silvina Dixon LCSW
[2017-07-25 17:52] LABS: POTASSIUM 3.4 mEq/L (3.5-5.2)
[2017-07-25] MEDS ORDERED: POTASSIUM CL 10 MEQ TAB PO ONE (19:07)
[2017-07-25] MEDS: GABAPENTIN 300 MG CAP PO SCH (20:41)
[2017-07-25] MEDS: PRAMIPEXOLE 0.25 MG TAB PO SCH (20:41)
[2017-07-25] MEDS: TEMAZEPAM 15 MG CAP PO PRN (21:25)
[2017-07-26] MEDS ORDERED: MELATONIN 3 MG TAB PO PRN (01:16)
[2017-07-26] MEDS: NICOTINE POLACRILEX 2 MG GUM B PRN ×7 (03:24→21:23)
[2017-07-26 05:36] LABS: ALANINE AMINOTRANSFERASE 207 IU/L (9-52); ALBUMIN 3.5 g/dL (3.5-5.0); ALKALINE PHOSPHATASE 124 IU/L (38-126); ANION GAP 13 mEq/L (8-16); ASPARTATE AMINOTRANSFERASE 63 IU/L (14-46); BILIRUBIN,TOTAL 0.8 mg/dL (0.1-1.4); CALCIUM 9.5 mg/dL (8.5-10.4); CARBON DIOXIDE 21 mEq/l (22-31); CHLORIDE 110 mEq/L (97-110); CREATININE 0.6 mg/dL (0.6-1.0); GLOMERULAR FILTRATION RATE > 60; GLUCOSE 127 mg/dL (70-100); MAGNESIUM 1.7 mg/dL (1.6-2.3); POTASSIUM 3.6 mEq/L (3.5-5.2); SODIUM 144 mEq/L (134-144); TOTAL PROTEIN 6.2 g/dL (6.3-8.2)
[2017-07-26 05:43] LABS: INR 0.98 (0.83-1.16); PROTIME(PATIENT) 12.9 SEC (12.0-15.0)
[2017-07-26] MEDS: HYDROmorphONE/DILAUDID 1 MG/ML INJ IVP PRN ×2 (07:18→12:32)
[2017-07-26 07:36] LABS: % IMMATURE GRANULYOCYTES 0.3 % (0.0-1.1); ABSOLUTE IMMATURE GRANULOCYTES 0.03 10^3/uL (0.00-0.10); ADD DIFF? NO; ADD MORPH? NO; ADD SCAN? NO; ATYPICAL LYMPHOCYTE FLAG 0 (0-99); FRAGMENT RBC FLAG 0 (0-99); HEMATOCRIT 35.2 % (38.0-47.0); HEMOGLOBIN 12.5 g/dL (12.6-16.3); LEFT SHIFT FLG 0 (0-99); LIPEMIA HEMOLYSIS FLAG 90 (0-99); MEAN CELL HEMOGLOBIN 30.9 pg (27.9-34.1); MEAN CELL HEMOGLOBIN CONCENTR. 35.5 g/dL (32.4-36.7); MEAN CELL VOLUME 87.1 fL (81.5-99.8); MEAN PLATELET VOLUME 9.2 fL (8.7-11.7); PLATELET CLUMPS FLAG 10 (0-99); PLATELET COUNT 260 10^3/uL (150-400); RED BLOOD CELL COUNT 4.04 10^6/uL (4.18-5.33)
[2017-07-26] MEDS ORDERED: POTASSIUM CL 10 MEQ TAB PO ONE ×2 (07:41→19:25)
[2017-07-26] MEDS: PROPRANOLOL SR 80 MG CAP PO SCH (08:16)
[2017-07-26] MEDS: PANTOPRAZOLE SODIUM 40 MG TAB PO SCH (08:16)
[2017-07-26] MEDS: TAMSULOSIN HCL 0.4 MG CAP PO SCH (08:16)
[2017-07-26] MEDS: NICOTINE 21 MG/24 HR PATCH TD SCH (08:16)
[2017-07-26] MEDS: PHENAZOPYRIDINE HCL 200 MG TAB PO SCH ×3 (08:17→18:36)
[2017-07-26] MEDS: FLUOCINONIDE 0.05% 15 GM CREAM TP SCH (08:27)
[2017-07-26] MEDS ORDERED: MAGNESIUM SULF 1 GM/DEXTROSE 100 ML IV ONE (08:40)
[2017-07-26] MEDS: PROMETHAZINE HCL 25 MG/ML INJ IVP PRN (09:19)
[2017-07-26] MEDS ORDERED: NS 1,000 ML IV SCH (11:15)
--- NOTE | 2017-07-26 11:19 | HOSPPROG ---
Hospitalist Progress Note Assessment/Plan: 56 YO Female admitted with right sided pyelonephritis and obstructive uropathy. She had ureterscopy with stent placement. She continues to have significant right flank pain and right lower abd pain which has required IV dilaudid. Transaminitis is improving. #Right sided pyelonephritis #Obstructive Uropathy, with hydronephrosis #acute pain syndrome #Nephrolithiasis #transaminitis, unclear etiology, appears somewhat improving. No liver pain. Not on tylenol. -holding statin -Hep panel negative -Hx of steatosis #tobacco abuse disorder: NRT #Chronic immunosuppression Plan: -cont inpatient -cont with Rocephin, await cultures -decrease IVF -Hold statin -recheck LFT's in a.m -cont home meds -Pain mgmt, I will increase her PO meds. Cont with IV Dilaudid PRN. 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 SCD's Full Code Dispo: likely discharge tomorrow Subjective: still with pain. Requesting a PICC line. Objective: Vital Signs Temp Pulse Resp BP Pulse Ox 36.5 C 63 20 140/77 H 96 07/26/17 08:50 07/26/17 08:50 07/26/17 08:50 07/26/17 08:50 07/26/17 08:50 Laboratory Results 07/26/17 07:27 07/26/17 04:57 07/25/17 07/26/17 07/27/17 05:59 05:59 05:59 Intake Total 1050 Output Total 2725 Balance -1675 PT 12.9 SEC (12.0-15.0) 07/26/17 04:57 INR 0.98 (0.83-1.16) 07/26/17 04:57 - Physical Exam Constitutional: no apparent distress Eyes: PERRL, EOMI Ears, Nose, Mouth, Throat: moist mucous membranes Cardiovascular: regular rate and rhythym Respiratory: no respiratory distress, no rales or rhonchi, clear to auscultation Gastrointestinal: normoactive bowel sounds, tenderness (Right lower quandrant) Skin: warm Musculoskeletal: other (no cva tenderness) Neurologic: AAOx3 Psychiatric: interacting appropriately, not anxious, not encephalopathic ICD10 Worksheet Patient Problems: Problems Problem Status Onset Kidney stone on right side Acute Pyelonephritis Acute Sepsis Acute Cellulitis Acute
[2017-07-26] MEDS: HYDROmorphONE/DILAUDID 2 MG TAB PO PRN ×2 (17:32→21:20)
[2017-07-26 18:42] LABS: POTASSIUM 3.4 mEq/L (3.5-5.2)
[2017-07-26 20:28] VITALS: RESP 16
[2017-07-26] MEDS: PRAMIPEXOLE 0.25 MG TAB PO SCH (21:19)
[2017-07-26] MEDS: GABAPENTIN 300 MG CAP PO SCH (21:19)
[2017-07-26] MEDS: TEMAZEPAM 15 MG CAP PO PRN (21:20)
[2017-07-27] MEDS: PROMETHAZINE HCL 25 MG/ML INJ IVP PRN
[2017-07-27] MEDS: HYDROmorphONE/DILAUDID 2 MG TAB PO PRN ×3 (00:13→10:07)
[2017-07-27] MEDS: NICOTINE POLACRILEX 2 MG GUM B PRN ×3 (00:14→10:04)
[2017-07-27 05:14] LABS: ALANINE AMINOTRANSFERASE 124 IU/L (9-52); ALKALINE PHOSPHATASE 99 IU/L (38-126); ANION GAP 9 mEq/L (8-16); ASPARTATE AMINOTRANSFERASE 21 IU/L (14-46); BILIRUBIN,TOTAL 0.4 mg/dL (0.1-1.4); CARBON DIOXIDE 25 mEq/l (22-31); CHLORIDE 108 mEq/L (97-110); CREATININE 0.7 mg/dL (0.6-1.0); GLOMERULAR FILTRATION RATE > 60; GLUCOSE 112 mg/dL (70-100); MAGNESIUM 1.7 mg/dL (1.6-2.3); POTASSIUM 3.5 mEq/L (3.5-5.2); SODIUM 142 mEq/L (134-144); TOTAL PROTEIN 5.1 g/dL (6.3-8.2)
[2017-07-27] MEDS ORDERED: MAGNESIUM SULF 1 GM/DEXTROSE 100 ML IV ONE ×2 (07:18→11:15)
[2017-07-27] MEDS ORDERED: POTASSIUM CL 10 MEQ TAB PO ONE (07:18)
[2017-07-27] MEDS: PHENAZOPYRIDINE HCL 200 MG TAB PO SCH (10:04)
[2017-07-27] MEDS: PROPRANOLOL SR 80 MG CAP PO SCH (10:05)
[2017-07-27] MEDS: TAMSULOSIN HCL 0.4 MG CAP PO SCH (10:07)
[2017-07-27] MEDS: NICOTINE 21 MG/24 HR PATCH TD SCH (10:07)
[2017-07-27] MEDS: PANTOPRAZOLE SODIUM 40 MG TAB PO SCH (10:07)
[2017-07-27] MEDS: FLUOCINONIDE 0.05% 15 GM CREAM TP SCH (10:09)
[2017-07-27 10:57] VITALS: BP 142/81; PULSE 67; TEMP 98.3; O2SAT 93
--- NOTE | 2017-07-27 11:44 | PDDCSUM ---
Discharge Summary Discharge Summary: 56 YO Female admitted with right sided pyelonephritis and obstructive uropathy. She had ureterscopy with stent placement. She was kept inpatient due to significant right flank pain and right lower abd pain which has required IV dilaudid. She now feels better and is ready for discharge on oral pain meds. #Right sided pyelonephritis, will cont on Omnicef x 4 additional days. She is on Bactrim at home and this can be restarted once off Omnicef. She will f/u with her PCP #Obstructive Uropathy, with hydronephrosis, s/p stent placement. Will f/u with Urology 1-2 weeks #acute pain syndrome #Nephrolithiasis #transaminitis, unclear etiology, appears somewhat improving. No liver pain. Not on tylenol. -holding statin -Hep panel negative -Hx of steatosis -will need repeat liver enzymes per PCP #tobacco abuse disorder #Chronic immunosuppression Exam: NAD AAOX3 RRR CTA S/NT/ND NO LE EDEMA MEDS: SEE MED REC. HOLD STATIN F/U: PCP NEXT WEEK, UROLOGY 1-2 WEEKS TOTAL TIME SPENT ON DISCHARGE IS 35 MINUTES
--- NOTE | 2017-07-27 13:57 | ASDISCHSUM ---
Discharge Information Plan Status:Home with No Needs Medically Cleared to Leave: Discharge Date:07/27/2017 01:54 PM CM D/C Disposition:Home, Routine, Self-Care ADT D/C Disposition:Home, Routine, Self-Care Projected Discharge Date:07/27/2017 01:54 PM Transportation at D/C:Family Discharge Delay Reason: Follow-Up Date:07/27/2017 01:54 PM Discharge Slot: Final Diagnosis: Placement Information Patient Contact Information Contact Name:JAMIE Relationship:Other Address: Work Phone: City: [facility] Phone: State/Zip Code: Email: Financial Information Financial Class:[facility] Primary Plan Desc:[employer] [employer] [facility] Primary Plan Number:[id number] Secondary Plan Desc: Secondary Plan Number: Assessment Information [facility] CM Progress Note CM Note CM Note Notes: Pt. is a 56-year-old woman admitted with obstructive uropathy due to a kidney stone. Hx. kidney stones, lupus, nephrolithiasis, Sjogren's syndrome, essential tremor, and smoking. No PT or OT ordered. Pt. currently on IV antibiotics. Likely independent at d/c. CM available should d/c POC change. Date Signed: 07/25/2017 03:34 PM Electronically Signed By:Silvina Dixon LCSW Intervention Information
== END 2017-07-27 13:54 | disposition home or self-care (01) | DRG 694 ==
LOC: EDUNIT# → F1N 16:38 → OBSVTOIN 07-25 12:07
PROVIDERS: ADMIT Internal Medicine; ATTEND Family Medicine
PROC: 0T9680Z Drainage of Right Ureter with Drainage Device, Via Natural or Artificial Opening Endoscopic (ICD-10-PCS; principal; 2017-07-25 09:00)
DX: N13.2 Hydronephrosis with renal and ureteral calculous obstruction (principal); N39.0 Urinary tract infection, site not specified; E87.6 Hypokalemia; R74.0 Nonspecific elevation of levels of transaminase and lactic acid dehydrogenase [LDH]; M32.9 Systemic lupus erythematosus, unspecified; M35.00 Sjogren syndrome, unspecified; M06.9 Rheumatoid arthritis, unspecified; G25.0 Essential tremor; F17.210 Nicotine dependence, cigarettes, uncomplicated
CPT/HCPCS: 96365; C1758; C1769; C2625; G0378; G0472; J0696; J1170; J1885; J2250; J2405; J2550; J2704; J3010; J3475; Q9967

== ENCOUNTER 2017-08-09 14:22 | Emergency (ER) | payer OTHER ==
[2017-08-09 14:31] VITALS: RESP 20
[2017-08-09] MEDS ORDERED: HYDROmorphONE/DILAUDID 1 MG/ML INJ IVP ONE (14:40)
[2017-08-09] MEDS ORDERED: KETOROLAC 30 MG/1 ML SDV IVP ONE (14:40)
[2017-08-09] MEDS ORDERED: NS 1,000 ML IV ONE (14:40)
--- NOTE | 2017-08-09 14:44 | EDPHY ---
H & P Time Seen by Provider: 08/09/17 14:25 HPI/ROS: CHIEF COMPLAINT: "I have a kidney stone " HISTORY OF PRESENT ILLNESS: The patient is a 6-year-old female with a history of kidney stones. She was diagnosed with kidney stones on . The day after she had a stent placed. She states at that time she had bilateral kidney stones. She has been on 2 rounds of antibiotics since that time. Most recently she saw her urologist, Dr. Albin adame, on Friday. He started on cefuroxime times 12 days. Her plan is to have ablation done on this Friday. She now has increasing flank pain bilaterally. Left is greater than right. No nausea or vomiting. No fevers or chills. No dysuria frequency. She has chronic mild abdominal discomfort that is unchanged. REVIEW OF SYSTEMS: My complete review of systems is negative except as mentioned in the HPI. Past Medical/Surgical History: Includes kidney stones, asthma, tremors, restless leg syndrome, reflux Past history: gastric banding Social history: The patient denies recent Smoking Status: Current every day smoker Physical Exam: Vitals noted GENERAL: Well-appearing, in no acute distress, alert. HEENT: Eyes normal to inspection, normal pharynx, no signs of dehydration. NECK: No thyromegaly, no lymphadenopathy, supple. RESPIRATORY: Clear to auscultation bilaterally, no rales, rhonchi or wheezing. CVS: Regular rate and rhythm, no rubs, murmurs, or gallops. ABDOMEN: Soft, mild periumbilical tenderness to palpation with no rebound or guarding, nondistended, no organomegaly. BACK: Normal to inspection, mild bilateral CVA tenderness. SKIN: Normal color, no rash, warm, dry. No pallor. EXTREMITIES: No pedal edema, no calf tenderness, no Homans sign or cords, no joint swelling. NEURO/PSYCH: Alert and oriented x3, normal mood and affect, normal motor sensory exam. No obvious cranial nerve deficit. Constitutional: Initial Vital Signs Temperature (C) 36.8 C 08/09/17 14:22 Heart Rate 137 H 08/09/17 14:22 Respiratory Rate 20 08/09/17 14:22 Blood Pressure 124/86 H 08/09/17 14:22 O2 Sat (%) 94 08/09/17 14:22 O2 Delivery Mode Room Air Allergies/Adverse Reactions: Penicillins Allergy (Severe, Verified 10/25/14 16:56) Swelling/neck,face,throat Home Medications: Medication Instructions Recorded Gabapentin [Neurontin 300 MG (*)] 300 mg PO HS 10/25/14 Alendronate Sodium [Fosamax 70 MG 70 mg PO DONOVAN@0700 07/24/17 (*)] Fluocinonide 0.05% [Lidex 0.05% 1 ian TP DAILY 07/24/17 Cream] Humira 40 mg INJ Q14D 07/24/17 Omeprazole 40 mg PO DAILY06 07/24/17 Pramipexole Di-HCl [Pramipexole 0.75 mg PO HS 07/24/17 Dihydrochloride] Propranolol HCl [Inderal Xl] 80 mg PO DAILY 07/24/17 Cefdinir [Omnicef (*)] 300 mg PO BID #8 cap 07/27/17 HYDROmorphone HCL [Dilaudid 2 mg 2 mg PO Q3HRS PRN #30 tab 07/27/17 (*)] Ondansetron Odt [Zofran Odt 4 mg 4 mg PO Q4HRS PRN #20 tab 07/27/17 (*)] Phenazopyridine HCl [Pyridium] 200 mg PO PC #20 tab 07/27/17 Tamsulosin HCl [Flomax 0.4 MG (*)] 0.4 mg PO DAILY #30 cap 07/27/17 HYDROmorphone HCL [Dilaudid 2 mg 2 mg PO Q4 #20 tab 08/09/17 (*)] Medical Decision Making - Diagnostics Imaging Results: Imaging Impressions Abdomen/Pelvis CT 08/09/17 14:40 Impression: Bilateral nephrolithiasis. Right-sided internal ureteral stent without significant hydronephrosis, bridging a 4 mm distal right ureteral calculus. Results called to Dr. Virgen at 4:00 PM. Attention: This CT examination is specifically designed to evaluate patients who are clinically suspected of having acute obstructive uropathy. This examination does not use radiographic contrast, and as such, provides only a limited evaluation of the abdomen, pelvis and retroperitoneum. If there is further clinical suspicion for pathological conditions other than obstructive uropathy, a complete CT evaluation of the abdomen and pelvis utilizing intravenous, oral, and rectal contrast should be considered. ED Course/Re-evaluation: The in the department I discussed possible etiologies with the patient. I answered all her questions. IV was placed. Laboratory studies were obtained. I ordered CT of the abdomen pelvis. Patient was given Dilaudid 0.5 mg and Toradol 30 mg IV for pain. She is given Zofran 4 mg IV for nausea. She is given normal saline 1 L IV for hydration. CBC shows normal white count. She is mildly anemic. Her chemistry panel is notable for a normal creatinine. Her UA was positive for red and white cells. Patient was given Rocephin 1 g IV. She has been on her antibiotics since Friday. On recheck the patient was sitting comfortably in her bed. She states she still has mild discomfort on the left. No new complaints. No nausea vomiting while here. CT abdomen pelvis: Please refer the dictated report by Dr. Jose L Nam. I discussed the case with Dr. Nam. The patient has bilateral nephrolithiasis. Right-sided internal ureteral stone without significant hydronephrosis, bridging a 4 mm distal right ureteral calculus. I discussed the results with the patient. She states she is feeling better. I offered her admission for pain control. The patient would prefer discharge home. I gave her warnings prior to leaving. She will return to the emergency department sooner if her symptoms worsen. She states she no longer has any pain medication. She was given a Dilaudid prescription. Differential Diagnosis: My differential includes but is not limited to kidney stone, renal colic, pyelonephritis, urinary tract infection, stent of function, bacteremia, sepsis, small-bowel obstruction, perforation - Data Points Laboratory Results: Laboratory Results 08/09/17 14:40 08/09/17 14:50 08/09/17 08/09/17 08/09/17 15:00 14:50 14:40 WBC RBC Hgb Hct MCV MCH MCHC RDW Plt Count MPV Neut % (Auto) Lymph % (Auto) Schleicher % (Auto) Eos % (Auto) Baso % (Auto) Nucleat RBC Rel Count Absolute Neuts (auto) Absolute Lymphs (auto) Absolute Monos (auto) Absolute Eos (auto) Absolute Basos (auto) Absolute Nucleated RBC Immature Gran % Immature Gran # Sodium 142 mEq/L mEq/L (134-144) Potassium 3.7 mEq/L mEq/L (3.5-5.2) Chloride 104 mEq/L mEq/L (97-110) Carbon Dioxide 24 mEq/l mEq/l (22-31) Anion Gap 14 mEq/L mEq/L (8-16) BUN 10 mg/dL mg/dL (7-23) Creatinine 0.8 mg/dL mg/dL (0.6-1.0) Estimated GFR > 60 Glucose 107 mg/dL H mg/dL (70-100) Calcium 9.9 mg/dL mg/dL (8.5-10.4) Beta HCG, Qual NEGATIVE Urine Color YELLOW Urine Appearance HAZY Urine pH 5.0 (5.0-7.5) Ur Specific [place] 1.014 (1.002-1.030) Urine Protein 2+ H (NEGATIVE) Urine Ketones NEGATIVE (NEGATIVE) Urine Blood 3+ H (NEGATIVE) Urine Nitrate NEGATIVE (NEGATIVE) Urine Bilirubin NEGATIVE (NEGATIVE) Urine Urobilinogen NEGATIVE EU EU (0.2-1.0) Ur Leukocyte Esterase 1+ H (NEGATIVE) Urine RBC 50-182 /hpf H /hpf (0-3) Urine WBC 25-50 /hpf H /hpf (0-3) Ur Epithelial Cells TRACE /lpf /lpf (NONE-1+) Urine Bacteria TRACE /hpf H /hpf (NONE SEEN) Hyaline Casts 15-25 /lpf H /lpf (0-1) Urine Mucus TRACE /lpf /lpf (NONE-1+) Urine Glucose NEGATIVE (NEGATIVE) 08/09/17 14:40 WBC 7.95 10^3/uL 10^3/uL (3.80-9.50) RBC 4.15 10^6/uL L 10^6/uL (4.18-5.33) Hgb 12.6 g/dL g/dL (12.6-16.3) Hct 37.3 % L % (38.0-47.0) MCV 89.9 fL fL (81.5-99.8) MCH 30.4 pg pg (27.9-34.1) MCHC 33.8 g/dL g/dL (32.4-36.7) RDW 13.1 % % (11.5-15.2) Plt Count 359 10^3/uL 10^3/uL (150-400) MPV 9.0 fL fL (8.7-11.7) Neut % (Auto) 50.1 % % (39.3-74.2) Lymph % (Auto) 40.1 % % (15.0-45.0) Schleicher % (Auto) 6.9 % % (4.5-13.0) Eos % (Auto) 1.6 % % (0.6-7.6) Baso % (Auto) 1.0 % % (0.3-1.7) Nucleat RBC Rel Count 0.0 % % (0.0-0.2) Absolute Neuts (auto) 3.98 10^3/uL 10^3/uL (1.70-6.50) Absolute Lymphs (auto) 3.19 10^3/uL H 10^3/uL (1.00-3.00) Absolute Monos (auto) 0.55 10^3/uL 10^3/uL (0.30-0.80) Absolute Eos (auto) 0.13 10^3/uL 10^3/uL (0.03-0.40) Absolute Basos (auto) 0.08 10^3/uL 10^3/uL (0.02-0.10) Absolute Nucleated RBC 0.00 10^3/uL 10^3/uL (0-0.01) Immature Gran % 0.3 % % (0.0-1.1) Immature Gran # 0.02 10^3/uL 10^3/uL (0.00-0.10) Sodium Potassium Chloride Carbon Dioxide Anion Gap BUN Creatinine Estimated GFR Glucose Calcium Beta HCG, Qual Urine Color Urine Appearance Urine pH Ur Specific [place] Urine Protein Urine Ketones Urine Blood Urine Nitrate Urine Bilirubin Urine Urobilinogen Ur Leukocyte Esterase Urine RBC Urine WBC Ur Epithelial Cells Urine Bacteria Hyaline Casts Urine Mucus Urine Glucose Medications Given: Discontinued Medications Hydromorphone HCl (Dilaudid) 0.5 mg IVP EDNOW ONE Stop: 08/09/17 14:41 Last Admin: 08/09/17 15:02 Dose: 0.5 mg Sodium Chloride (Ns) 1,000 mls @ 0 mls/hr IV EDNOW ONE; Wide Open PRN Reason: Protocol Stop: 08/09/17 14:41 Last Admin: 08/09/17 15:01 Dose: 1,000 mls Ceftriaxone Sodium/Dextrose (Rocephin 1 Gm (Premix)) 50 mls @ 100 mls/hr IV EDNOW ONE PRN Reason: Protocol Stop: 08/09/17 16:13 Last Admin: 08/09/17 16:23 Dose: 50 mls Ketorolac Tromethamine (Toradol) 30 mg IVP EDNOW ONE Stop: 08/09/17 14:41 Last Admin: 08/09/17 15:01 Dose: 30 mg Departure - Departure Disposition: Home, Routine, Self-Care Clinical Impression: Flank pain, acute Condition: Good Instructions: Flank Pain (ED) Additional Instructions: You still have a calculus (stone) being bridged by the renal stent on the right. You need close follow-up with your urologist. Return to the emergency department with increasing pain, vomiting, fever or any other concerns. Take your antibiotics as directed. Referrals: Lam Morris DO [Primary Care Provider] - As per Instructions Albin Bhardwaj MD [Medical Doctor] - 08/11/17 Prescriptions: HYDROmorphone HCL [Dilaudid 2 mg (*)] 2 mg PO Q4 #20 tab
[2017-08-09 14:59] LABS: % IMMATURE GRANULYOCYTES 0.3 % (0.0-1.1); ABSOLUTE IMMATURE GRANULOCYTES 0.02 10^3/uL (0.00-0.10); ADD DIFF? NO; ADD MORPH? NO; ADD SCAN? NO; ATYPICAL LYMPHOCYTE FLAG 0 (0-99); FRAGMENT RBC FLAG 0 (0-99); HEMATOCRIT 37.3 % (38.0-47.0); HEMOGLOBIN 12.6 g/dL (12.6-16.3); LEFT SHIFT FLG 0 (0-99); LIPEMIA HEMOLYSIS FLAG 90 (0-99); MEAN CELL HEMOGLOBIN 30.4 pg (27.9-34.1); MEAN CELL HEMOGLOBIN CONCENTR. 33.8 g/dL (32.4-36.7); MEAN CELL VOLUME 89.9 fL (81.5-99.8); PLATELET CLUMPS FLAG 10 (0-99); PLATELET COUNT 359 10^3/uL (150-400); RED BLOOD CELL COUNT 4.15 10^6/uL (4.18-5.33); RED CELL DISTRIBUTION WIDTH 13.1 % (11.5-15.2)
[2017-08-09 15:13] LABS: ANION GAP 14 mEq/L (8-16); CALCIUM 9.9 mg/dL (8.5-10.4); CARBON DIOXIDE 24 mEq/l (22-31); CHLORIDE 104 mEq/L (97-110); CREATININE 0.8 mg/dL (0.6-1.0); GLOMERULAR FILTRATION RATE > 60; GLUCOSE 107 mg/dL (70-100); POTASSIUM 3.7 mEq/L (3.5-5.2); SODIUM 142 mEq/L (134-144)
[2017-08-09 15:19] LABS: COLOR YELLOW; LEUKOCYTE ESTERASE,URINE 1+ (NEGATIVE); NITRITE,URINE NEGATIVE (NEGATIVE)
[2017-08-09 15:29] LABS: BACTERIA TRACE /hpf (NONE SEEN); HYALINE CASTS 15-25 /lpf (0-1); MUCUS TRACE /lpf (NONE-1+); RBC,URINE 50-182 /hpf (0-3); WBC,URINE 25-50 /hpf (0-3)
[2017-08-09 17:31] VITALS: BP 129/103; PULSE 126; TEMP 98.1; O2SAT 93
== END 2017-08-09 17:29 | disposition home or self-care (01) ==
DX: R10.9 Unspecified abdominal pain (principal); J45.909 Unspecified asthma, uncomplicated; F17.200 Nicotine dependence, unspecified, uncomplicated; E86.9 Volume depletion, unspecified
CPT/HCPCS: 96365; J0696; J1170; J1885

== ENCOUNTER 2017-08-19 15:32 | Observation (INO) | payer OTHER ==
--- NOTE | 2017-08-19 15:49 | EDPHY ---
H & P Time Seen by Provider: 08/19/17 15:49 HPI/ROS: CHIEF COMPLAINT: Right flank pain HISTORY OF PRESENT ILLNESS: 56-year-old woman had a right ureteral stent placed the day after [place]. She presented here on August 09. She saw her urologist in the office week ago. Patient presents with continued severe right flank pain which radiates the anterior abdomen is associated with burning urination. Symptoms have been present intermittently for the past 10 days but worse over the past 48 hr. She is currently taking Flomax and Zofran but eventually ran out of her Dilaudid. She said that her urologist is scheduled to see her tomorrow but he has been unable to remove the stent because of swelling so far. She says the pain "debilitating "says she is in too much pain to be discharged. REVIEW OF SYSTEMS: Eye: no change in vision ENT: no sore throat Cardiac: no chest pain or syncope Pulmonary: no cough or SOB Abdomen: No vomiting or diarrhea, right flank pain Musculoskeletal: HPI Skin: no rash Neuro: no headache Constitutional: Subjective fever and chills : HPI A comprehensive 10 point review of systems is otherwise negative aside from elements mentioned in the history of present illness. PAST MEDICAL HISTORY: Includes lupus and Sjogren's on Humira, hysterectomy, SVT , kidney stones, right kidney stent as noted Social history: Tobacco smoker General Appearance: Alert and conversant, cooperative. Moderately uncomfortable Eyes: No scleral icterus. ENT, Mouth: Normal mucous membranes. Respiratory: Normal respiratory effort, breath sounds equal, lungs are clear to auscultation. Cardiovascular: Regular rate and rhythm. Gastrointestinal: Abdomen is soft and non tender. Neurological: Alert and oriented x3. Normally conversant. Face symmetric, normal movement and sensation in all extremities. Skin: Warm and dry, no rashes. Musculoskeletal: No peripheral edema and no joint swelling. Psychiatric: Not agitated. Tearful. Emergency Department course/MDM: Patient presents with worsening severe right flank pain unresponsive by her report to outpatient treatment. She is requiring IV medication for pain control. Plan for hospitalist admission with Urology consultation, urinalysis and chemistries. Discussed with Dr. Myrick. Dilaudid 1 mg IV, Zofran 4 mg IV, lidocaine 100 mg IV. Smoking Status: Current every day smoker Constitutional: Initial Vital Signs Temperature (C) 37.7 C 08/19/17 15:37 Heart Rate 108 H 08/19/17 15:37 Respiratory Rate 18 08/19/17 15:37 Blood Pressure 140/87 H 08/19/17 15:37 O2 Sat (%) 93 08/19/17 15:37 O2 Delivery Mode Room Air Allergies/Adverse Reactions: Penicillins Allergy (Severe, Verified 10/25/14 16:56) Swelling/neck,face,throat Home Medications: Medication Instructions Recorded Alendronate Sodium [Fosamax 70 MG 70 mg PO DONOVAN@0700 07/24/17 (*)] Fluocinonide 0.05% [Lidex 0.05% 1 ian TP DAILY 07/24/17 Cream] Humira 40 mg INJ Q14D 07/24/17 Omeprazole 40 mg PO DAILY06 07/24/17 Pramipexole Di-HCl [Pramipexole 0.75 mg PO HS 07/24/17 Dihydrochloride] Propranolol HCl [Inderal Xl] 80 mg PO DAILY 07/24/17 HYDROmorphone HCL [Dilaudid 2 mg 2 mg PO Q3HRS PRN #30 tab 07/27/17 (*)] Ondansetron Odt [Zofran Odt 4 mg 4 mg PO Q4HRS PRN #20 tab 07/27/17 (*)] Phenazopyridine HCl [Pyridium] 200 mg PO PC #20 tab 07/27/17 Tamsulosin HCl [Flomax 0.4 MG (*)] 0.4 mg PO DAILY #30 cap 07/27/17 HYDROmorphone HCL [Dilaudid 2 mg 2 mg PO Q4 #20 tab 08/09/17 (*)] Ondansetron Odt [Zofran Odt 4 mg 4 mg PO Q4PRN PRN #7 tab 08/09/17 (*)] Medical Decision Making Differential Diagnosis: Differential diagnosis considered for flank pain including but not limited to musculoskeletal causes, kidney stone, pyelonephritis, shingles, and intra- abdominal causes such as diverticulitis and appendicitis. Consult/Admit Bed Type: [place] [address], [facility] for Dr. Bhardwaj 1903 - Data Points Laboratory Results: Laboratory Results 08/19/17 15:40 08/19/17 15:40 08/19/17 08/19/17 15:40 15:40 WBC 8.21 10^3/uL 10^3/uL (3.80-9.50) RBC 4.54 10^6/uL 10^6/uL (4.18-5.33) Hgb 13.6 g/dL g/dL (12.6-16.3) Hct 40.3 % % (38.0-47.0) MCV 88.8 fL fL (81.5-99.8) MCH 30.0 pg pg (27.9-34.1) MCHC 33.7 g/dL g/dL (32.4-36.7) RDW 13.1 % % (11.5-15.2) Plt Count 370 10^3/uL 10^3/uL (150-400) MPV 8.9 fL fL (8.7-11.7) Neut % (Auto) 39.8 % % (39.3-74.2) Lymph % (Auto) 44.9 % % (15.0-45.0) [place] % (Auto) 8.0 % % (4.5-13.0) Eos % (Auto) 5.8 % % (0.6-7.6) Baso % (Auto) 1.1 % % (0.3-1.7) Nucleat RBC Rel Count 0.0 % % (0.0-0.2) Absolute Neuts (auto) 3.26 10^3/uL 10^3/uL (1.70-6.50) Absolute Lymphs (auto) 3.69 10^3/uL H 10^3/uL (1.00-3.00) Absolute Monos (auto) 0.66 10^3/uL 10^3/uL (0.30-0.80) Absolute Eos (auto) 0.48 10^3/uL H 10^3/uL (0.03-0.40) Absolute Basos (auto) 0.09 10^3/uL 10^3/uL (0.02-0.10) Absolute Nucleated RBC 0.00 10^3/uL 10^3/uL (0-0.01) Immature Gran % 0.4 % % (0.0-1.1) Immature Gran # 0.03 10^3/uL 10^3/uL (0.00-0.10) Sodium 141 mEq/L mEq/L (134-144) Potassium 4.0 mEq/L mEq/L (3.5-5.2) Chloride 108 mEq/L mEq/L (97-110) Carbon Dioxide 19 mEq/l L mEq/l (22-31) Anion Gap 14 mEq/L mEq/L (8-16) BUN 16 mg/dL mg/dL (7-23) Creatinine 0.7 mg/dL mg/dL (0.6-1.0) Estimated GFR > 60 Glucose 111 mg/dL H mg/dL (70-100) Calcium 9.4 mg/dL mg/dL (8.5-10.4) Medications Given: Discontinued Medications Hydromorphone HCl (Dilaudid) 1 mg IVP EDNOW ONE Stop: 08/19/17 16:04 Last Admin: 08/19/17 16:14 Dose: 1 mg Lidocaine HCl 100 mg/ Sodium (Chloride) 110 mls @ 600 mls/hr IV EDNOW ONE Stop: 08/19/17 16:13 Last Admin: 08/19/17 16:59 Dose: 110 mls Sodium Chloride (Ns) 1,000 mls @ 3,000 mls/hr IV EDNOW ONE Stop: 08/19/17 16:22 Last Admin: 08/19/17 16:13 Dose: 1,000 mls Ondansetron HCl (Zofran) 4 mg IVP EDNOW ONE Stop: 08/19/17 16:04 Last Admin: 08/19/17 16:14 Dose: 4 mg Departure - Departure Disposition: [facility] Acute Clinical Impression: Kidney stone on right side Condition: Good
[2017-08-19] MEDS ORDERED: HYDROmorphONE/DILAUDID 1 MG/ML INJ IVP ONE (16:03)
[2017-08-19] MEDS ORDERED: NS 1,000 ML IV ONE (16:03)
[2017-08-19] MEDS ORDERED: ONDANSETRON 4 MG/2 ML VIAL IVP ONE (16:03)
[2017-08-19] MEDS ORDERED: LIDOCAINE 1% 100 MG in NS 100 ML IV ONE (16:03)
[2017-08-19 16:15] LABS: ANION GAP 14 mEq/L (8-16); CALCIUM 9.4 mg/dL (8.5-10.4); CARBON DIOXIDE 19 mEq/l (22-31); CHLORIDE 108 mEq/L (97-110); CREATININE 0.7 mg/dL (0.6-1.0); GLOMERULAR FILTRATION RATE > 60; GLUCOSE 111 mg/dL (70-100); SODIUM 141 mEq/L (134-144)
[2017-08-19 16:16] LABS: % IMMATURE GRANULYOCYTES 0.4 % (0.0-1.1); ABSOLUTE IMMATURE GRANULOCYTES 0.03 10^3/uL (0.00-0.10); ADD DIFF? NO; ADD MORPH? NO; ADD SCAN? NO; ATYPICAL LYMPHOCYTE FLAG 0 (0-99); FRAGMENT RBC FLAG 0 (0-99); HEMATOCRIT 40.3 % (38.0-47.0); HEMOGLOBIN 13.6 g/dL (12.6-16.3); LEFT SHIFT FLG 0 (0-99); LIPEMIA HEMOLYSIS FLAG 80 (0-99); MEAN CELL HEMOGLOBIN CONCENTR. 33.7 g/dL (32.4-36.7); MEAN CELL VOLUME 88.8 fL (81.5-99.8); MEAN PLATELET VOLUME 8.9 fL (8.7-11.7); PLATELET CLUMPS FLAG 10 (0-99); PLATELET COUNT 370 10^3/uL (150-400); RED BLOOD CELL COUNT 4.54 10^6/uL (4.18-5.33); RED CELL DISTRIBUTION WIDTH 13.1 % (11.5-15.2)
[2017-08-19] MEDS ORDERED: ACETAMINOPHEN 325 MG TAB PO PRN (16:56)
[2017-08-19] MEDS ORDERED: ONDANSETRON DISINTEGRATING 4 MG TAB PO PRN (16:56)
[2017-08-19] MEDS ORDERED: ONDANSETRON 4 MG/2 ML VIAL IVP PRN (16:56)
[2017-08-19 18:06] LABS: BACTERIA 2+ /hpf (NONE SEEN); MUCUS TRACE /lpf (NONE-1+); RBC,URINE 50-182 /hpf (0-3); WBC,URINE 50-182 /hpf (0-3)
[2017-08-19] MEDS: KETOROLAC 15 MG/1 ML SDV IVP SCH (18:42)
[2017-08-19] MEDS ORDERED: TEMAZEPAM 7.5 MG PO PRN ×2 (18:51→19:03)
[2017-08-19] MEDS ORDERED: ALBUTEROL INH PREPACK MDI TAKEHOME PRN (18:51)
[2017-08-19] MEDS ORDERED: FLUTICASONE/SALMETER 250/50MCG DISKUS IH PRN ×2 (18:51→19:01)
[2017-08-19] MEDS ORDERED: HYDROCODONE/APAP 5/325 TAB PO PRN (18:51)
[2017-08-19] MEDS ORDERED: LACTULOSE 20 GM/30 ML UDCUP PO PRN (18:58)
[2017-08-19] MEDS ORDERED: POLYETHYLENE GLYCOL 3350 17 GM PKT PO PRN (18:58)
[2017-08-19] MEDS ORDERED: BISACODYL 10 MG SUPP PR PRN (18:58)
[2017-08-19] MEDS ORDERED: MAGNESIUM HYDROXIDE 30 ML UDCUP PO PRN (18:58)
[2017-08-19] MEDS ORDERED: LR 1,000 ML IV SCH (19:00)
[2017-08-19] MEDS ORDERED: ALBUTEROL 200 PUFFS/18 GM MDI IH PRN (19:01)
--- NOTE | 2017-08-19 19:43 | GHP ---
[f rep st] HISTORY AND PHYSICAL DATE OF ADMISSION: 08/19/2017 CHIEF COMPLAINT: Right flank pain, right ureteral stone. HISTORY: A 56-year-old female with history of RA, Sjogren's, and recent hospitalization for right ureteral stone and pyelonephritis was discharged at the end of July. She underwent right ureteral stent placement 07/25/[address] Bhardwaj with [facility]. She subsequently had a lithotripsy last week. Since that time, she has had increased right flank and abdominal pain. She states that it is achy in nature, can be sharp with moving. She has also reported chills and dysuria, but the dysuria is not new. Denies fevers. She just completed a 7 day course of ciprofloxacin this weekend. No nausea, vomiting. Has had decreased p.o. intake. She has had increased abdominal bloating, has not had a bowel movement in several days. Has been using Dilaudid regularly for pain control. REVIEW OF SYSTEMS: I completed a 10-point review of systems, negative except as noted in HPI. PAST MEDICAL HISTORY: Nephrolithiasis, lupus, history of E coli UTI, Sjogren's , essential tremor, history of pulmonary symptoms and is having an evaluation at [facility]. PAST SURGICAL HISTORY: Cholecystectomy, hysterectomy, , C6-C7 surgery , SVT ablation. FAMILY HISTORY: No lupus, kidney stones. SOCIAL HISTORY: Smoker. No alcohol. No drugs. ALLERGIES: Penicillin, anaphylactic. MEDICATIONS: Home medications: Advair p.r.n., temazepam 7.5 mg q.h.s. p.r.n., albuterol, [place], fluoxetine 60 mg daily, Flomax daily, propranolol 80 mg daily , Pyridium, Zofran, omeprazole, Dilaudid 2 mg q.6 hours p.r.n., Fosamax weekly , Humira every 14 days. PHYSICAL EXAMINATION: VITAL SIGNS: Temperature 36.5, blood pressure 138/70, heart rate in the 90s, respiration 12, 92% on room air. GENERAL: Well- appearing female, lying in bed, mild discomfort. HEENT: PERRLA. EOMI. Dry mucous membranes. CARDIOVASCULAR: Regular rate and rhythm. No murmurs, gallops, rubs. LUNGS: Clear to auscultation bilaterally. ABDOMEN: Soft, nontender, nondistended. Positive bowel sounds. GENITOURINARY: No Sanchez. Positive CVA and suprapubic tenderness. Mild CVA tenderness on the left. MUSCULOSKELETAL: 5/5 upper and lower extremity strength. GASTROINTESTINAL: Mild distention. Soft, nontender, nondistended. NEUROLOGIC: 2 through 12 intact. PSYCHIATRIC: Alert and oriented x3. LABORATORY DATA: WBC 8, hemoglobin 13, hematocrit 40, platelets 370. Sodium 140, potassium 4, chloride 109, carbon dioxide 19, creatinine 0.9, glucose 111. Urine: 50-182 WBCs, +2 bacteria. Abdominal x-ray: Right ureteral stent in good position. Gaseous bowel pattern and constipation. ASSESSMENT AND PLAN: 1. Acute flank pain: Secondary to stone versus pyelonephritis. She had completed a course of Omnicef at discharge at the end of July and just completed ciprofloxacin this weekend. Urine culture is pending. We will dose Levaquin this evening. Dr. Bhardwaj with [facility] has been consulted. Pain control with IV Toradol. Hydrate with fluids. 2. History of rheumatoid arthritis. Resume home medications. 3. Sjogren's. Resume home medications. 4. Constipation noted on x-ray and by history. Bowel regimen. 5. Essential tremor. Propranolol. 6. Tobacco use. Nicotine patch. 7. Diet. Regular n.p.o. after midnight. Disposition. Patient warrants observation admission given acute pain from either stone or possible pyelonephritis. Warrants IV fluids, pain control, and Urology consult. /[id number]/MODL MTDD
[2017-08-19] MEDS: PHENAZOPYRIDINE HCL 200 MG TAB PO SCH (20:19)
[2017-08-19] MEDS: SENNOSIDES/DOCUSATE SODIUM TAB PO SCH (20:20)
[2017-08-19] MEDS ORDERED: PRAMIPEXOLE 0.25 MG TAB PO SCH (21:00)
[2017-08-19] MEDS ORDERED: PRAMIPEXOLE DI HCL 0.75 MG PO SCH (21:00)
[2017-08-19] MEDS ORDERED: LORazepam 1 MG TAB PO PRN (21:19)
[2017-08-19] MEDS: NICOTINE 21 MG/24 HR PATCH TD SCH (21:33)
[2017-08-19] MEDS ORDERED: TEMAZEPAM 15 MG CAP PO PRN (22:13)
[2017-08-20] MEDS: KETOROLAC 15 MG/1 ML SDV IVP SCH ×3 (00:48→10:51)
[2017-08-20] MEDS ORDERED: NON-FORMULARY NEW DRUG (Omeprazole [Omeprazole] 40 MG) PO SCH (06:00)
[2017-08-20] MEDS ORDERED: PANTOPRAZOLE SODIUM 40 MG TAB PO SCH (06:00)
[2017-08-20 06:38] LABS: ANION GAP 9 mEq/L (8-16); CALCIUM 8.8 mg/dL (8.5-10.4); CARBON DIOXIDE 23 mEq/l (22-31); CHLORIDE 110 mEq/L (97-110); CREATININE 0.6 mg/dL (0.6-1.0); GLOMERULAR FILTRATION RATE > 60; GLUCOSE 99 mg/dL (70-100); POTASSIUM 3.8 mEq/L (3.5-5.2); SODIUM 142 mEq/L (134-144)
[2017-08-20] MEDS ORDERED: TAMSULOSIN HCL 0.4 MG CAP PO SCH (09:00)
[2017-08-20] MEDS ORDERED: FLUOXETINE HCL 60 MG PO SCH (09:00)
[2017-08-20] MEDS ORDERED: PROPRANOLOL SR 80 MG CAP PO SCH (09:00)
[2017-08-20] MEDS ORDERED: FLUOCINONIDE 0.05% 15 GM CREAM TP SCH (09:00)
[2017-08-20] MEDS ORDERED: FLUoxetine 20 MG CAP PO SCH (09:00)
[2017-08-20] MEDS ORDERED: NICOTINE 14 MG/24 HR PATCH TD SCH (09:00)
[2017-08-20] MEDS ORDERED: NON-FORMULARY NEW DRUG (Propranolol Hcl [Inderal Xl] 80 MG) PO SCH (09:00)
[2017-08-20] MEDS ORDERED: ENOXAPARIN 40 MG/0.4 ML SYR SC SCH (09:00)
[2017-08-20] MEDS: NICOTINE 21 MG/24 HR PATCH TD SCH (10:51)
[2017-08-20 13:06] VITALS: BP 146/86; PULSE 109; RESP 12; TEMP 98.3; O2SAT 91
[2017-08-20] MEDS: PHENAZOPYRIDINE HCL 200 MG TAB PO SCH ×2 (13:14→14:08)
[2017-08-20] MEDS ORDERED: PNEUMOCOCCAL 0.5ML VACCINE VIAL IM ONE (13:21)
[2017-08-20] MEDS: SENNOSIDES/DOCUSATE SODIUM TAB PO SCH (14:09)
--- NOTE | 2017-08-20 16:25 | ASDISCHSUM ---
Discharge Information Plan Status: Medically Cleared to Leave: Discharge Date:08/20/2017 03:13 PM CM D/C Disposition: ADT D/C Disposition:Home, Routine, Self-Care Projected Discharge Date:08/20/2017 03:13 PM Transportation at D/C: Discharge Delay Reason: Follow-Up Date:08/20/2017 03:13 PM Discharge Slot: Final Diagnosis: Placement Information Patient Contact Information Contact Name:JAMIE Relationship:Other Address: Work Phone: City: [facility] Phone: State/Zip Code: Email: Financial Information [facility] Primary Plan Desc:EUNICE BHATTIO O OPEN ACC LOCAL Primary Plan Number:[id number] Secondary Plan Desc: Secondary Plan Number: Assessment Information [facility] CM Progress Note CM Note CM Note Notes: Pt DC'd today with no needs. Date Signed: 08/20/2017 04:24 PM Electronically Signed By:Tamy Sparks LCSW Intervention Information
--- NOTE | 2017-08-20 18:44 | PDDCSUM ---
Discharge Summary Discharge Summary: DISCHARGE DIAGNOSES: -flank pain after recent removal of kidney stone and stent placement, suspect due to some possible in stent hematoma CONSULTANTS: -Physician captain assistant for [facility] PROCEDURES: None HOSPITAL COURSE SUMMARY: This patient was here recently with a kidney stone, with questionable infection though this was not demonstrated by studies. Been treated with antibiotics and has been treated with antibiotics repeatedly for flank discomfort since her stent placement. All the cultures for these episodes have had no growth and she has not had any real resolution of symptoms. It seems unlikely that she has infection. There is no significant pyuria here at this time and there is no fever. Nonetheless she is getting empiric antibiotics just in case there is any infection. There have been attempts to remove her stent in the clinic over the past few weeks but there has been too much edema for removal. The patient did pass some dark hematuria that look like there may have been some breakdown of some recent clot but no acute appearing hematuria. She is emptying her bladder without difficulty. She was seen by physician captain assistant for [facility]. This was reviewed with the surgeon. It was felt that the patient would benefit from some anti- inflammatory medicine and so is given prescriptions for Toradol and Pyridium. Plans are to have her come into this clinic over the next several days to try and have her stent removed. She was also treated with some empiric Levaquin going home at this time. PENDING TEST RESULTS: Urine culture MEDICATION CHANGES: Addition of Toradol, Pyridium, Levaquin FOLLOW-UP PLAN: [facility] for attempt at stent removal
--- NOTE | 2017-08-20 20:16 | GCON ---
[f rep st] CONSULTATION DATE OF CONSULTATION: 08/20/2017 REASON FOR CONSULT: Indwelling right ureteral stent, renal colic. HISTORY OF PRESENT ILLNESS: This is a 56-year-old female, who had a hospitalization for right ureter al stone and pyelonephritis at the end of July. She subsequently underwent right ureteral stent placement on 07/25/2017, with Dr. Bhardwaj of our group and then had lithotripsy done last week. She has complained of increasing flank pain on the right, abdominal pain that is achy and disruptive, worse with movement. She is denying fever. She most recently completed a course of ciprofloxacin this wee jackson, denying nausea or vomiting. Patient reports that she has hydrocodone at home for her rheumatoi d arthritis. She also has a past medical history significant for Sjogren. REVIEW OF SYSTEMS: A 10-point review of systems negative except as mentioned in the HPI, with the ad dition of the patient was tearful and unhappy during exam. PAST MEDICAL HISTORY: Includes nephrolithiasis, lupus, E. coli UTI, Sjogren, essential tremor, rheum atoid arthritis, possible pulmonary symptoms being evaluated at the [facility]. SURGICAL HISTORY: Cholecystectomy, hysterectomy, , C6 through C7 surgery, SVT ablation. FAMILY HISTORY: Positive for kidney stones. SOCIAL HISTORY: Smoker. Denies alcohol or drugs. 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 ALLERGIES: Penicillin causes anaphylaxis. HOME MEDICATIONS: Include Advair, temazepam, albuterol, [place], fluoxetine, Flomax, propranolol, Pyri dium, Zofran, omeprazole, Dilaudid, Fosamax, Humira. PHYSICAL EXAM: VITAL SIGNS: Blood pressure 131/90, heart rate 102, respirations 18, O2 92, temperat ure 36.8. Of note, her heart rate has been in the 90s since she was admitted. GENERAL: Well-develo ped, well-nourished female in mild distress. HEENT: Normocephalic, atraumatic. Extraocular movemen ts intact. NECK: Supple. No lymphadenopathy. Trachea midline. RESPIRATORY: No accessory respira tory muscle use. Regular breath sounds. CARDIAC: Regular rate and rhythm. No obvious JVD. No low er extremity edema. GI: Abdomen was soft, nondistended, nontender to palpation. No hepatosplenomeg judd. Normal bowel sounds. : Patient was tender over the right flank and the right lower quadrant , in keeping with the location of the stent. INTEGUMENT: Patient has multiple tattoos, but no obvio us rashes or lesions. MUSCULOSKELETAL: She was examined while supine but moving upper extremities w ithout difficulty. NEUROLOGIC: Patient is alert and oriented. Affect appropriate to situation. LABS: White blood cell count is 8.21, hemoglobin 13.6, hematocrit 40.3, platelets 370. Chemistry: Sodium 142, potassium 3.8, chloride 110, carbon dioxide 23, anion gap 9, BUN 13, creatinine 0.6, gluc ose 99, calcium 8.8. Urinalysis was positive for red blood cells, white blood cells, 2+ bacteria. S he does have a pending urine culture. I reviewed her KUB that was done, that shows her stent in good location without obvious fragments along stent. I also reviewed her CT from last week, which also s howed her stent in good location on the right side, with the addition of a possible calculus fragment at that point along the stent, again, not seen on KUB done today. Otherwise, no sign of perinephric stranding on the right on last week's CT. ASSESSMENT AND PLAN: Right ureteral stent, renal colic. I have discussed this case with Dr. Benton Ye of our group, and recommend that we continue with the standard treatment plan to have th e stent removed in the office by Dr. Bhardwaj. This was discussed with the patient. She is agreeable. Recommend that she be discharged by the hospitalist when appropriate, with the addition of Toradol fo r pain control since patient already has narcotics at home, and continue to keep her on Levaquin pend ing urine culture and stent removal. /[id number]/MODL
== END 2017-08-20 15:13 | disposition home or self-care (01) ==
LOC: F1N 18:35
PROVIDERS: ADMIT Internal Medicine; ATTEND Internal Medicine
DX: N20.1 Calculus of ureter (principal); R10.31 Right lower quadrant pain; M06.9 Rheumatoid arthritis, unspecified; M32.9 Systemic lupus erythematosus, unspecified; M35.00 Sjogren syndrome, unspecified; G25.0 Essential tremor; F17.210 Nicotine dependence, cigarettes, uncomplicated; Z23 Encounter for immunization; Z87.440 Personal history of urinary (tract) infections
CPT/HCPCS: 74000; 90471; 96361; 96374; 96375; 99285; G0378; G0009; J1170; J1650; J1885; J2405

== ENCOUNTER → 2017-08-26 | Outpatient (CLI) | payer OTHER | LOC: FIMAGING 15:42 | PROVIDERS: ATTEND Urology | DX: N20.0 Calculus of kidney (principal) ==

== ENCOUNTER 2018-01-03 07:13 | Emergency (ER) | payer SELFPAY ==
--- NOTE | 2018-01-03 07:38 | EDPHY ---
H & P Stated Complaint: R flank pain Time Seen by Provider: 01/03/18 07:28 HPI/ROS: Chief Complaint: Flank pain HPI: 57-year-old woman with a history of kidney stone in August presenting with right flank pain which began last night at 9 o'clock at night. Pain comes in waves. Is worse when she moves. At worst is a 9/10. Right now is a 2/10. She has had some subjective fevers at home. No nausea or vomiting. No diarrhea or constipation. No urinary urgency or frequency. It is similar to her kidney stone pain from August. She does have a history of rheumatoid arthritis and is on immunosuppression. ROS: 10 point Review of Systems is negative except as noted in the HPI. PMH: Rheumatoid arthritis, kidney stones Social History: No smoking, no alcohol, no recreational drug use Family History: non-contributory Physical Exam: Gen: Awake, Alert, No Distress HEENT: Nose: no rhinorrhea Eyes: PERRLA, EOMI Mouth: Moist mucosa Neck: Supple, no JVD Chest: nontender, lungs clear to auscultation Heart: S1, S2 normal, no murmur Abd: Soft, non-tender, no guarding Back: no CVA tenderness, no midline tenderness, she does have reproducible right upper lumbar soft tissue paraspinal tenderness reproducing her presenting complaint. Ext: no edema, non-tender Skin: no rash Neuro: CN II-XII intact, Sensation grossly intact, Strength 5/5 in bilateral upper and lower extremities - Personal History Current Tetanus/Diphtheria Vaccine: Unsure Current Tetanus Diphtheria and Acellular Pertussis (TDAP): Unsure Tetanus Vaccine Date: within last 10 years. 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, kidney stones,reflux, neck surgery, vocal cord surgery, R KIDNEY STENT - Social History Smoking Status: Current every day smoker Constitutional: Initial Vital Signs Temperature (C) 36.4 C 01/03/18 07:20 Heart Rate 108 H 01/03/18 07:20 Respiratory Rate 16 01/03/18 07:20 Blood Pressure 130/89 H 01/03/18 07:20 O2 Sat (%) 96 01/03/18 07:20 O2 Delivery Mode Room Air Allergies/Adverse Reactions: Penicillins Allergy (Severe, Verified 01/03/18 07:18) Swelling/neck,face,throat Home Medications: Medication Instructions Recorded Adalimumab [Humira] 40 mg SQ Q14D #0 07/24/17 Alendronate Sodium [Fosamax 70 MG 70 mg PO DONOVAN@0700 07/24/17 (*)] Pramipexole Di-HCl [Pramipexole 0.75 mg PO HS 07/24/17 Dihydrochloride] Propranolol HCl [Inderal Xl] 80 mg PO DAILY 07/24/17 Albuterol Sulfate [Ventolin Hfa] 1 puffs IH Q4H PRN 08/19/17 FLUoxetine HCL [Fluoxetine HCl] 60 mg PO DAILY 08/19/17 Fluticasone/Salmeter 250/50Mcg 1 puffs IH BID PRN 08/19/17 [Advair 250/50 (*)] Hydrocodone/Acetaminophen [[place] 1 each PO TID PRN 08/19/17 5/325 (*)] Temazepam 7.5 mg PO HS PRN 08/19/17 Nitrofurantoin Monohyd/M-Cryst 100 mg PO BID #10 capsule 01/03/18 [Macrobid 100 mg Capsule] Medical Decision Making ED Course/Re-evaluation: Urinalysis is equivocal for UTI. There is some white cells in leuk esterase however there is some contamination. She has a small amount of blood but no red blood cells. Patient's symptoms have completely resolved without any treatment. We have had a long discussion about the utility of CT scanning or other imaging. I told her that I suspect that she may have had a scan bus past. Without significant pain since last night I think would be appropriate for her to follow up with her urologist. I do not think further imaging is indicated at this time in a with a 2 exposure to the radiation a CT scan on this sterilely. Patient is in good agreement with this plan. Will discharge her with oral antibiotics. She will follow up with her urologist early in the week. She will return if her pain worsens, has fever or chills, nausea vomiting , or any other concerns. She will also take anti-inflammatories for her pain. The patient is comfortable with this plan and understands the reasons to return and the importance for outpatient follow-up. - Data Points Laboratory Results: 01/03/18 07:35 Urine Color YELLOW Urine Appearance HAZY Urine pH 5.0 (5.0-7.5) Ur Specific [place] 1.018 (1.002-1.030) Urine Protein NEGATIVE (NEGATIVE) Urine Ketones NEGATIVE (NEGATIVE) Urine Blood 1+ H (NEGATIVE) Urine Nitrate NEGATIVE (NEGATIVE) Urine Bilirubin NEGATIVE (NEGATIVE) Urine Urobilinogen NEGATIVE EU EU (0.2-1.0) Ur Leukocyte Esterase 1+ H (NEGATIVE) Urine RBC 1-3 /hpf /hpf (0-3) Urine WBC 3-5 /hpf H /hpf (0-3) Ur Epithelial Cells TRACE /lpf /lpf (NONE-1+) Hyaline Casts 1-5 /lpf /lpf (0-1) Urine Mucus TRACE /lpf /lpf (NONE-1+) Urine Glucose NEGATIVE (NEGATIVE) Departure - Departure Disposition: Home, Routine, Self-Care Clinical Impression: Flank pain, Urinary tract infection Condition: Good Instructions: Flank Pain (ED), Urinary Tract Infection in Women (ED) Additional Instructions: Follow up with your urologist, Dr. Bhardwaj, in 2-3 days. You may take ibuprofen, 600 mg 3 times a day for pain. Please take her full course of antibiotics. Return to the emergency department for worsening uncontrolled pain, fevers or chills, uncontrolled nausea vomiting, or any other concerns. Referrals: Lam Morris DO [Primary Care Provider] - As per Instructions Albin Bhardwaj MD [Medical Doctor] - As per Instructions Prescriptions: Nitrofurantoin Monohyd/M-Cryst [Macrobid 100 mg Capsule] 100 mg PO BID #10 capsule
[2018-01-03 09:00] VITALS: BP 108/68
== END 2018-01-03 09:00 | disposition home or self-care (01) ==
DX: R10.9 Unspecified abdominal pain (principal); N39.0 Urinary tract infection, site not specified; J45.909 Unspecified asthma, uncomplicated; F17.200 Nicotine dependence, unspecified, uncomplicated; Z90.710 Acquired absence of both cervix and uterus

== ENCOUNTER 2018-06-12 20:54 | Emergency (ER) | payer SELFPAY ==
--- NOTE | 2018-06-12 21:17 | EDPHY ---
H & P Time Seen by Provider: 06/12/18 21:11 HPI/ROS: CHIEF COMPLAINT: Flank pain HISTORY OF PRESENT ILLNESS: Patient is a 57-year-old female who presents to the emergency department with ongoing right flank pain for 2-3 weeks. The patient states she has had previous kidney stones. She states her pain has been worse for the past 3 days. Pain is moderate to severe. It is not worse with movement. Patient states she feels a mass on her right flank. She feels this may be related. She has had no dysuria, hematuria or frequency. No fevers or chills. No nausea or vomiting. Patient does report weight loss and fatigue. REVIEW OF SYSTEMS: 10 systems were reveiwed and are negative with the exception of the elements mentioned in the history of present illness. Past Medical/Surgical History: Includes asthma, anxiety, lupus, surgery in syndrome, back pain, SVT, kidney stones Past surgical history: Includes hysterectomy, , neck surgery, vocal cord surgery, right kidney stent placement Social history: Patient does not smoke Smoking Status: Current every day smoker Physical Exam: Vitals noted GENERAL: No acute distress, alert. HEENT: Eyes normal to inspection, normal pharynx, no signs of dehydration. NECK: Normal, supple. RESPIRATORY: Clear to auscultation bilaterally, no rales, rhonchi or wheezing. CVS: Regular rate and rhythm, no rubs, murmurs, or gallops. ABDOMEN: Soft, nontender, nondistended, no organomegaly. BACK: Normal to inspection, patient has right lateral tenderness to palpation. There is no rash. No crepitus. SKIN: Normal color, no rash, warm, dry. No pallor. EXTREMITIES: No pedal edema, no calf tenderness, no joint swelling. NEURO/PSYCH: Alert and oriented, normal mood and affect Constitutional: Initial Vital Signs Temperature (C) 36.7 C 06/12/18 21:05 Heart Rate 138 H 06/12/18 21:05 Respiratory Rate 20 06/12/18 21:05 Blood Pressure 159/104 H 06/12/18 21:05 O2 Sat (%) 98 06/12/18 21:05 O2 Delivery Mode Room Air Allergies/Adverse Reactions: Penicillins Allergy (Severe, Verified 06/12/18 21:09) Swelling/neck,face,throat Home Medications: Medication Instructions Recorded Adalimumab [Humira] 40 mg SQ Q14D #0 07/24/17 Alendronate Sodium [Fosamax 70 MG 70 mg PO DONOVAN@0700 07/24/17 (*)] Pramipexole Di-HCl [Pramipexole 0.75 mg PO HS 07/24/17 Dihydrochloride] Propranolol HCl [Inderal Xl] 80 mg PO DAILY 07/24/17 Albuterol Sulfate [Ventolin Hfa] 1 puffs IH Q4H PRN 08/19/17 FLUoxetine HCL [Fluoxetine HCl] 60 mg PO DAILY 08/19/17 Fluticasone/Salmeter 250/50Mcg 1 puffs IH BID PRN 08/19/17 [Advair 250/50 (*)] Hydrocodone/Acetaminophen [[place] 1 each PO TID PRN 08/19/17 5/325 (*)] Temazepam 7.5 mg PO HS PRN 08/19/17 Nitrofurantoin Monohyd/M-Cryst 100 mg PO BID #10 capsule 01/03/18 [Macrobid 100 mg Capsule] Cephalexin [Keflex (*)] 500 mg PO QID 7 Days cap 06/12/18 Hydrocodone/APAP 5/325 [[place] 1 - 2 tab PO Q4 #13 tab 06/12/18 5/325 (RX)] Medical Decision Making ED Course/Re-evaluation: In the emergency department I discussed the plan with the patient. I answered all her questions. The patient states she has a difficult IV stick. We were able to obtain labs but there was no IV obtained. Patient states she has previously needed PICC line. She was noted to have tachycardia in the 130s. On repeat evaluation her heart rate was 116. Patient's sodium was 135, chloride was low at 93, carbon dioxide 31, anion gap 11, BUN 17, creatinine 1.1 [place] [address]. Hematocrit was 38.6. Platelet count 329. Patient's urine was notable for 1-3 red cells, 1+ leuk esterase and 5-10 white cells Due the patient's right flank tenderness and history of kidney stones a CT scan was ordered. CT of the abdomen pelvis: Please refer the dictated report by Dr. Jeffers. The patient has bilateral renal calculus. There is no obstruction. Patient is constipated. There is no notable mass. Patient's potassium was 2.6. Patient was given oral potassium chloride 60 mEq I discussed the results with the patient. I answered all her questions. The patient was given given Keflex 500 mg orally. This will cover for possible urinary tract infection. Patient was given a prescription on discharge. She is given a prescription of [place]. Patient will return with worsening symptoms or any other concerns. Differential Diagnosis: My differential includes but is not limited to urinary tract infection, pyelonephritis, mass, malignancy, musculoskeletal strain, bacteremia, sepsis, constipation - Data Points Laboratory Results: Laboratory Results 06/12/18 21:30 06/12/18 21:30 06/12/18 06/12/18 06/12/18 21:30 21:30 21:18 WBC 12.96 10^3/uL H 10^3/uL (3.80-9.50) RBC 4.44 10^6/uL 10^6/uL (4.18-5.33) Hgb 13.6 g/dL g/dL (12.6-16.3) Hct 38.6 % % (38.0-47.0) MCV 86.9 fL fL (81.5-99.8) MCH 30.6 pg pg (27.9-34.1) MCHC 35.2 g/dL g/dL (32.4-36.7) RDW 13.3 % % (11.5-15.2) Plt Count 329 10^3/uL 10^3/uL (150-400) MPV 9.6 fL fL (8.7-11.7) Neut % (Auto) 56.1 % % (39.3-74.2) Lymph % (Auto) 33.4 % % (15.0-45.0) [place] % (Auto) 9.0 % % (4.5-13.0) Eos % (Auto) 0.6 % % (0.6-7.6) Baso % (Auto) 0.7 % % (0.3-1.7) Nucleat RBC Rel Count 0.0 % % (0.0-0.2) Absolute Neuts (auto) 7.26 10^3/uL H 10^3/uL (1.70-6.50) Absolute Lymphs (auto) 4.33 10^3/uL H 10^3/uL (1.00-3.00) Absolute Monos (auto) 1.17 10^3/uL H 10^3/uL (0.30-0.80) Absolute Eos (auto) 0.08 10^3/uL 10^3/uL (0.03-0.40) Absolute Basos (auto) 0.09 10^3/uL 10^3/uL (0.02-0.10) Absolute Nucleated RBC 0.00 10^3/uL 10^3/uL (0-0.01) Immature Gran % 0.2 % % (0.0-1.1) Immature Gran # 0.03 10^3/uL 10^3/uL (0.00-0.10) Sodium 135 mEq/L mEq/L (135-145) Potassium Pending Chloride 93 mEq/L L mEq/L (97-110) Carbon Dioxide 31 mEq/l mEq/l (22-31) Anion Gap 11 mEq/L mEq/L (6-14) BUN 17 mg/dL mg/dL (7-23) Creatinine 1.1 mg/dL H mg/dL (0.6-1.0) Estimated GFR 51 Glucose 130 mg/dL H mg/dL (70-100) Calcium 9.7 mg/dL mg/dL (8.5-10.4) Urine Color COLORLESS Urine Appearance CLEAR Urine pH 5.0 (5.0-7.5) Ur Specific [place] 1.005 (1.002-1.030) Urine Protein NEGATIVE (NEGATIVE) Urine Ketones NEGATIVE (NEGATIVE) Urine Blood NEGATIVE (NEGATIVE) Urine Nitrate NEGATIVE (NEGATIVE) Urine Bilirubin NEGATIVE (NEGATIVE) Urine Urobilinogen NEGATIVE EU EU (0.2-1.0) Ur Leukocyte Esterase 1+ H (NEGATIVE) Urine RBC 1-3 /hpf /hpf (0-3) Urine WBC 5-10 /hpf H /hpf (0-3) Ur Epithelial Cells TRACE /lpf /lpf (NONE-1+) Hyaline Casts 5-15 /lpf /lpf (0-1) Urine Mucus TRACE /lpf /lpf (NONE-1+) Urine Glucose NEGATIVE (NEGATIVE) Departure - Departure Disposition: Home, Routine, Self-Care Clinical Impression: Flank pain, acute, Hypokalemia Urinary tract infection Qualifiers: Urinary tract infection type: acute cystitis Hematuria presence: without hematuria Qualified Code(s): N30.00 - Acute cystitis without hematuria Condition: Good Instructions: Hydrocodone/Acetaminophen (By mouth), Urinary Tract Infection in Women (ED), Flank Pain (ED) Additional Instructions: Take your entire course of antibiotics. There is no notable mass on CT imaging. There is no obstructing kidney stone at this time. You have bilateral renal stones. These could cause symptoms in the future. Return with increasing pain, fever, vomiting or any other concerns. Referrals: Lam Morris, DO [Primary Care Provider] - 2-3 days without fail Prescriptions: Cephalexin [Keflex (*)] 500 mg PO QID 7 Days cap Hydrocodone/APAP 5/325 [[place] 5/325 (RX)] 1 - 2 tab PO Q4 #13 tab
[2018-06-12 22:00] LABS: PLATELET COUNT 329 10^3/uL (150-400)
[2018-06-12 22:40] VITALS: BP 133/96
[2018-06-12] MEDS: HYDROCOD/APAP 5/325 PREPACK#6 BTL TAKEHOME ONE (23:02)
[2018-06-12] MEDS: CEPHALEXIN 500MG PREPACK#4 BTL TAKEHOME ONE (23:03)
[2018-06-12] MEDS: POTASSIUM CL 20 MEQ/15 ML UDCUP PO ONE (23:10)
== END 2018-06-12 23:21 | disposition home or self-care (01) ==
DX: N20.0 Calculus of kidney (principal); N30.00 Acute cystitis without hematuria; E87.6 Hypokalemia; M32.9 Systemic lupus erythematosus, unspecified

== ENCOUNTER 2018-07-10 20:42 | Emergency (ER) | payer SELFPAY ==
[2018-07-10] MEDS ORDERED: NS 1,000 ML IV ONE (21:44)
[2018-07-10 21:53] LABS: PLATELET COUNT 369 10^3/uL (150-400)
--- NOTE | 2018-07-10 22:31 | EDPHY ---
General Time Seen by Provider: 07/10/18 22:19 Narrative: CHIEF COMPLAINT: Gaps in time, something off HISTORY OF PRESENT ILLNESS: Patient presents by private vehicle with complaints "gaps in time, I feel strange in something is off." She states that the symptoms started approximately 2 weeks ago. They have been intermittently present. They wax and wane but over the past 3 days they have been more pronounced. Unable to quantify the severity. Very difficult for her to describe. She has no headache or neck pain. No fever. No chest pain shortness of breath or cough. She has no abdominal pain but does have some intermittent right-sided flank pain. No urinary complaints. No rash. She denies any drug or alcohol use dependency. She history of cirrhosis. She states that her coworkers had commenting on how she has been acting abnormal. She denies suicidal ideation. She denies trauma. No other associated complaints or modifying factors. REVIEW OF SYSTEMS: 10 systems were reviewed and negative with the exception of the elements mentioned in the history of present illness. PCP: Dr. Lam Morris SPECIALISTS: Dr. Wilson, Rheumatology PAST MEDICAL HISTORY: Asthma, anxiety, Sjogren syndrome, back pain, SVT status post ablation, rheumatoid arthritis, osteoarthritis, kidney stones, reflux PAST SURGICAL HISTORY: Right kidney stent,"neck surgery," SVT ablation SOCIAL HISTORY: Daily smoker. FAMILY HISTORY: Noncontributory EXAMINATION: Vitals: Triage VS reviewed General Appearance: Alert, no distress Head: normocephalic, atraumatic Eyes: Pupils equal and round, no conjunctival pallor or injection ENT, Mouth: Mucous membranes dry Neck: Normal inspection, supple, non-tender Respiratory: Lungs are clear to auscultation Cardiovascular: Regular rate and rhythm Gastrointestinal: Abdomen is soft and nontender. No CVA tenderness. No rigidity. No tympany. No guarding. Back: non-tender, no bony abnormalities Neurological: Cranial nerves 2-12 grossly intact. GCS 15. A&O, nonfocal, normal gait. Strength is symmetric in all limbs. Light sensory symmetrical limbs. Skin: Warm and dry, no rash. Multiple tattoos. Extremities: Nontender, no pedal edema Psychiatric: Mood and affect normal. Denies suicidal ideation. Denies homicidal ideation. Denies hallucinations. DIFFERENTIAL DIAGNOSES: Including but not limited to early onset dementia, delirium, schizophrenia, schizoaffective, MDM: 10:20 p.m. Vague symptoms consistent with small episodes of cognitive impairment. Nonspecific complaints without any positive findings on exam. She is in no acute distress. She is mildly dehydrated with mild tachycardia. I will evaluate for possibility of infection to rule out delirium. I feel this is unlikely. She is in no acute distress. She is very calm and cooperative. 11:30 p.m. I discussed case with Dr. Sanchez. There is no evidence of urinary tract infection, pneumonia, or any laboratory study abnormalities. I re-evaluated the patient after IV fluid and her heart rate is within normal limits. We discussed follow up with primary care physician and she is comfortable this plan. We discussed ED precautions for any worsening symptoms, headache, neck pain or stiffness, fever, urinary complaints, hallucinations, thoughts of self- harm or harm towards others. She is comfortable this plan, well-appearing and discharged home stable condition. SUPERVISION: Patient was independently examined, but I discussed the case with my secondary supervising physician Dr. Sanchez - History Smoking Status: Current every day smoker - Objective Vital Signs: Initial Vital Signs Temperature (C) 98.6 F 07/10/18 20:51 Heart Rate 123 H 07/10/18 20:51 Respiratory Rate 18 07/10/18 20:51 Blood Pressure 163/97 H 07/10/18 20:51 O2 Sat (%) 95 07/10/18 20:51 O2 Delivery Mode Room Air Allergies/Adverse Reactions: Penicillins Allergy (Severe, Verified 07/10/18 20:48) Swelling/neck,face,throat Home Medications: Medication Instructions Recorded Alendronate Sodium [Fosamax 70 MG 70 mg PO DONOVAN@0700 07/24/17 (*)] Pramipexole Di-HCl [Pramipexole 0.75 mg PO HS 07/24/17 Dihydrochloride] Propranolol HCl [Inderal Xl] 80 mg PO DAILY 07/24/17 Albuterol Sulfate [Ventolin Hfa] 1 puffs IH Q4H PRN 08/19/17 FLUoxetine HCL [Fluoxetine HCl] 60 mg PO DAILY 08/19/17 Fluticasone/Salmeter 250/50Mcg 1 puffs IH BID PRN 08/19/17 [Advair 250/50 (*)] Hydrocodone/Acetaminophen [[place] 1 each PO TID PRN 08/19/17 5/325 (*)] Temazepam 7.5 mg PO HS PRN 08/19/17 Laboratory Results: Laboratory Results 07/10/18 21:34 07/10/18 21:34 07/10/18 07/10/18 07/10/18 22:42 21:34 21:34 WBC RBC Hgb Hct MCV MCH MCHC RDW Plt Count MPV Neut % (Auto) Lymph % (Auto) [place] % (Auto) Eos % (Auto) Baso % (Auto) Nucleat RBC Rel Count Absolute Neuts (auto) Absolute Lymphs (auto) Absolute Monos (auto) Absolute Eos (auto) Absolute Basos (auto) Absolute Nucleated RBC Immature Gran % Immature Gran # Sodium 134 mEq/L L mEq/L (135-145) Potassium 3.6 mEq/L mEq/L (3.3-5.0) Chloride 101 mEq/L mEq/L (97-110) Carbon Dioxide 25 mEq/l mEq/l (22-31) Anion Gap 8 mEq/L mEq/L (6-14) BUN 14 mg/dL mg/dL (7-23) Creatinine 0.6 mg/dL mg/dL (0.6-1.0) Estimated GFR > 60 Glucose 115 mg/dL H mg/dL (70-100) Calcium 9.6 mg/dL mg/dL (8.5-10.4) Total Bilirubin 0.6 mg/dL mg/dL (0.1-1.4) Conjugated Bilirubin 0.2 mg/dL mg/dL (0.0-0.5) Unconjugated Bilirubin 0.4 mg/dL mg/dL (0.0-1.1) AST 22 IU/L IU/L (14-46) ALT 36 IU/L IU/L (9-52) Alkaline Phosphatase 91 IU/L IU/L (38-126) Total Protein 7.0 g/dL g/dL (6.3-8.2) Albumin 4.2 g/dL g/dL (3.5-5.0) Urine Color PALE YELLOW Urine Appearance CLEAR Urine pH 6.0 (5.0-7.5) Ur Specific [place] 1.006 (1.002-1.030) Urine Protein NEGATIVE (NEGATIVE) Urine Ketones NEGATIVE (NEGATIVE) Urine Blood 2+ H (NEGATIVE) Urine Nitrate NEGATIVE (NEGATIVE) Urine Bilirubin NEGATIVE (NEGATIVE) Urine Urobilinogen NEGATIVE EU EU (0.2-1.0) Ur Leukocyte Esterase NEGATIVE (NEGATIVE) Urine RBC 1-3 /hpf /hpf (0-3) Urine WBC 1-3 /hpf /hpf (0-3) Ur Epithelial Cells TRACE /lpf /lpf (NONE-1+) Hyaline Casts 1-5 /lpf /lpf (0-1) Granular Casts 1-5 /lpf /lpf (0-1) Urine Mucus TRACE /lpf /lpf (NONE-1+) Urine Glucose NEGATIVE (NEGATIVE) Urine Opiates Screen NEGATIVE (NEGATIVE) Urine Barbiturates NEGATIVE (NEGATIVE) Ur Phencyclidine Scrn NEGATIVE (NEGATIVE) Ur Amphetamine Screen NEGATIVE (NEGATIVE) U Benzodiazepines Scrn NEGATIVE (NEGATIVE) Urine Cocaine Screen NEGATIVE (NEGATIVE) U Marijuana (THC) Screen NON-NEGATIVE H (NEGATIVE) 07/10/18 21:34 WBC 11.78 10^3/uL H 10^3/uL (3.80-9.50) RBC 4.14 10^6/uL L 10^6/uL (4.18-5.33) Hgb 12.7 g/dL g/dL (12.6-16.3) Hct 37.0 % L % (38.0-47.0) MCV 89.4 fL fL (81.5-99.8) MCH 30.7 pg pg (27.9-34.1) MCHC 34.3 g/dL g/dL (32.4-36.7) RDW 13.6 % % (11.5-15.2) Plt Count 369 10^3/uL 10^3/uL (150-400) MPV 8.6 fL L fL (8.7-11.7) Neut % (Auto) 70.2 % % (39.3-74.2) Lymph % (Auto) 21.0 % % (15.0-45.0) [place] % (Auto) 7.9 % % (4.5-13.0) Eos % (Auto) 0.3 % L % (0.6-7.6) Baso % (Auto) 0.3 % % (0.3-1.7) Nucleat RBC Rel Count 0.0 % % (0.0-0.2) Absolute Neuts (auto) 8.28 10^3/uL H 10^3/uL (1.70-6.50) Absolute Lymphs (auto) 2.47 10^3/uL 10^3/uL (1.00-3.00) Absolute Monos (auto) 0.93 10^3/uL H 10^3/uL (0.30-0.80) Absolute Eos (auto) 0.04 10^3/uL 10^3/uL (0.03-0.40) Absolute Basos (auto) 0.03 10^3/uL 10^3/uL (0.02-0.10) Absolute Nucleated RBC 0.00 10^3/uL 10^3/uL (0-0.01) Immature Gran % 0.3 % % (0.0-1.1) Immature Gran # 0.03 10^3/uL 10^3/uL (0.00-0.10) Sodium Potassium Chloride Carbon Dioxide Anion Gap BUN Creatinine Estimated GFR Glucose Calcium Total Bilirubin Conjugated Bilirubin Unconjugated Bilirubin AST ALT Alkaline Phosphatase Total Protein Albumin Urine Color Urine Appearance Urine pH Ur Specific [place] Urine Protein Urine Ketones Urine Blood Urine Nitrate Urine Bilirubin Urine Urobilinogen Ur Leukocyte Esterase Urine RBC Urine WBC Ur Epithelial Cells Hyaline Casts Granular Casts Urine Mucus Urine Glucose Urine Opiates Screen Urine Barbiturates Ur Phencyclidine Scrn Ur Amphetamine Screen U Benzodiazepines Scrn Urine Cocaine Screen U Marijuana (THC) Screen Medications Given: Discontinued Medications Sodium Chloride (Ns) 1,000 mls @ 0 mls/hr IV ONCE ONE; Wide Open PRN Reason: Protocol Stop: 07/10/18 21:45 Last Admin: 07/10/18 21:51 Dose: 1,000 mls Departure - Departure Disposition: Home, Routine, Self-Care Clinical Impression: Memory deficit Condition: Good Instructions: Mild Cognitive Impairment: New Diagnosis (DC) Additional Instructions: 1. Contact your primary care physician for outpatient follow-up this week 2. Contact 911 or return to emergency department for any thoughts of self-harm, thoughts of harm towards others, hallucinations 3. Increase her fluid intake for the next 2-3 days Referrals: Lam Morris, [Primary Care Provider] - As per Instructions Physician,Emergency Dept, [Medical Doctor] - As per Instructions Stand Alone Forms: Work Excuse
[2018-07-10 23:58] VITALS: BP 122/82
== END 2018-07-10 23:56 | disposition home or self-care (01) ==
LOC: EEVIPCON 20:42
DX: R41.3 Other amnesia (principal); E86.9 Volume depletion, unspecified
CPT/HCPCS: 80305

== ENCOUNTER 2018-11-03 12:39 | Emergency (ER) | payer MEDICAID ==
[2018-11-03 12:46] VITALS: BP 171/98
--- NOTE | 2018-11-03 13:11 | EDPHY ---
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 She states that it was improving but has worsened over the last couple of months. She has also noticed several hemorrhoids that are slightly painful. She has had blood streaks stool. No blood only. No lightheadedness or fainting. She has a history of hysterectomy. No urinary symptoms. She has been trying to take laxatives without improvement. No fever. She took video on her phone and is showed me the pictures here in the department. Severity: Moderate Modifying factors: None REVIEW OF SYSTEMS: Constitutional: denies: chills, fever, recent illness, recent injury EENTM: denies: blurred vision, double vision, nose congestion Respiratory: denies: cough, shortness of breath Cardiac: denies: chest pain, irregular heart rate, lightheadedness, palpitations Gastrointestinal/Abdominal: denies: abdominal pain, diarrhea, nausea, vomiting, blood streaked stools Genitourinary: See HPI Musculoskeletal: denies: joint pain, muscle pain Skin: denies: lesions, rash, jaundice, bruising Neurological: denies: headache, numbness, paresthesia, tingling, dizziness, weakness Hematologic/Lymphatic: denies: blood clots, easy bleeding, easy bruising Immunologic/allergic: denies: HIV/AIDS, transplant 10 systems reviewed and negative except as noted EXAM: GENERAL: Well-appearing, well-nourished and in no acute distress. HEAD: Atraumatic, normocephalic. EYES: Pupils equal round and reactive to light, extraocular movements intact, sclera anicteric, conjunctiva are normal. ENT: TMs normal, nares patent, oropharynx clear without exudates. Moist mucous membranes. NECK: Normal range of motion, supple without lymphadenopathy or JVD. LUNGS: Breath sounds clear to auscultation bilaterally and equal. No wheezes rales or rhonchi. HEART: Regular rate and rhythm without murmurs, rubs or gallops. ABDOMEN: Soft, nontender, normoactive bowel sounds. No guarding, no rebound. No masses appreciated. : Rectal fissure seen at 9:00 a.m. Position. Several internal hemorrhoids visible on rectal scope. BACK: No CVA tenderness, no spinal tenderness, step-offs or deformities EXTREMITIES: Normal range of motion, no pitting or edema. No clubbing or cyanosis. NEUROLOGICAL: Cranial nerves II through XII grossly intact. Normal speech, normal gait. 5/5 strength, normal movement in all extremities, normal sensation , normal reflexes PSYCH: Normal mood, normal affect. SKIN: Warm, dry, normal turgor, no visible rashes or lesions. Source: Patient Exam Limitations: No limitations - Personal History Current Tetanus/Diphtheria Vaccine: Unsure Current Tetanus Diphtheria and Acellular Pertussis (TDAP): Unsure Tetanus Vaccine Date: within last 10 years. 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,RA, OSTEOARTHRITIS, kidney stones,reflux, neck surgery, vocal cord surgery, R KIDNEY STENT - Family History Significant Family History: No pertinent family hx - Social History Smoking Status: Current every day smoker Alcohol Use: None Constitutional: Initial Vital Signs Temperature (C) 36.3 C 11/03/18 12:41 Heart Rate 112 H 11/03/18 12:41 Respiratory Rate 16 11/03/18 12:41 Blood Pressure 171/98 H 11/03/18 12:41 O2 Sat (%) 97 11/03/18 12:41 O2 Delivery Mode Room Air Allergies/Adverse Reactions: Penicillins Allergy (Severe, Verified 11/03/18 12:45) Swelling/neck,face,throat Home Medications: Medication Instructions Recorded Alendronate Sodium [Fosamax 70 MG 70 mg PO DONOVAN@0700 07/24/17 (*)] Pramipexole Di-HCl [Pramipexole 0.75 mg PO HS 07/24/17 Dihydrochloride] Propranolol HCl [Inderal Xl] 80 mg PO DAILY 07/24/17 Albuterol Sulfate [Ventolin Hfa] 1 puffs IH Q4H PRN 08/19/17 FLUoxetine HCL [Fluoxetine HCl] 60 mg PO DAILY 08/19/17 Fluticasone/Salmeter 250/50Mcg 1 puffs IH BID PRN 08/19/17 [Advair 250/50 (*)] Hydrocodone/Acetaminophen [[place] 1 each PO TID PRN 08/19/17 5/325 (*)] Enbrel 11/03/18 Hydrocortisone Acetate [Anucort-Hc] 25 mg RC BID #14 supp.rect 11/03/18 Medical Decision Making ED Course/Re-evaluation: The patient has a anal fissure that is been present for many months. Also internal hemorrhoids. I will prescribe her steroid suppositories Sitz baths and stool softeners and have her follow up with surgery. She understands and agrees with this plan. She is otherwise well-appearing. Differential Diagnosis: Partial list of the Differential diagnosis considered include but were not limited to; hemorrhoid, fissure and although unlikely based on the history and physical exam, I also considered thrombosis, hemorrhage, polyp, ischemia. I discussed these differential diagnoses and the plan with the patient as well as the usual and expected course. The patient understands that the diagnosis is provisional and that in medicine we are not always correct and that further workup is often warranted. Usual and customary warnings were given. All of the patient's questions were answered. The patient was instructed to return to the emergency department should the symptoms at all worsen or return, otherwise to followup with the physician as we discussed. Departure - Departure Disposition: Home, Routine, Self-Care Clinical Impression: Internal hemorrhoids, Anal fissure Condition: Good Instructions: Laxative, Stool Softeners (By mouth), Hemorrhoids (ED), Anal Fissure (ED) Referrals: NONE *PRIMARY CARE P,. [Primary Care Provider] - As per Instructions Marlene Potter MD [Medical Doctor] - 2-3 days, call for appt. Prescriptions: Hydrocortisone Acetate [Anucort-Hc] 25 mg RC BID #14 supp.rect
== END 2018-11-03 13:25 | disposition home or self-care (01) ==
DX: K64.8 Other hemorrhoids (principal); K60.2 Anal fissure, unspecified; J45.909 Unspecified asthma, uncomplicated; K21.9 Gastro-esophageal reflux disease without esophagitis; F41.9 Anxiety disorder, unspecified; F17.200 Nicotine dependence, unspecified, uncomplicated; Z87.442 Personal history of urinary calculi; Z88.0 Allergy status to penicillin

== ENCOUNTER → 2019-01-08 | Outpatient (CLI) | payer MEDICAID | LOC: FIMAGING 12:28 | PROVIDERS: ATTEND Internal Medicine Rheumatology | DX: Z13.820 Encounter for screening for osteoporosis (principal); M85.89 Other specified disorders of bone density and structure, multiple sites; M06.9 Rheumatoid arthritis, unspecified; Z78.0 Asymptomatic menopausal state; Z82.69 Family history of other diseases of the musculoskeletal system and connective tissue ==

== ENCOUNTER 2019-02-03 19:41 | Emergency (ER) | payer MEDICAID | END 2019-02-03 21:17 | disposition home or self-care (01) ==

== ENCOUNTER 2019-02-07 07:52 | Emergency (ER) | payer MEDICAID | END 2019-02-07 10:22 | disposition home or self-care (01) ==

== ENCOUNTER 2019-02-10 05:48 | Emergency (ER) | payer MEDICAID | END 2019-02-10 07:27 | disposition home or self-care (01) ==